=== PATIENT | female | born 1935 | race Caucasian/White ===

== ENCOUNTER 2023-03-26 10:52 | Emergency (ER) | payer MEDICARE, SELFPAY ==
--- NOTE | 2023-03-26 | ECG_ITS ---
Test Reason : TACHY Blood Pressure : / mmHG Vent. Rate : 120 BPM Atrial Rate : 120 BPM P-R Int : 174 ms QRS Dur : 074 ms QT Int : 312 ms P-R-T Axes : 043 006 038 degrees QTc Int : 440 ms Sinus tachycardia Possible Left atrial enlargement Septal infarct , age undetermined Abnormal ECG No previous ECGs available Referred By: Generic ED Physician Electronically Signed By:DARYA PECK MD
--- NOTE | ~2023-03-26 | CT_ITS ---
EXAMINATION: CT ABDOMEN AND PELVIS WITH CONTRAST CLINICAL INFORMATION: Left lower quadrant pain. COMPARISON: None available. TECHNIQUE: Multidetector volumetric images were obtained from the superior aspect of the liver through the pubic symphysis following administration 85 mL of Omnipaque 350 intravenous contrast. Sagittal and coronal reformatted images were obtained on the technologist's workstation. Oral contrast: No This CT examination was performed using dose optimization techniques as appropriate, variously including the following: *Automated exposure control *Adjustment of mA and/or kV according to patient size (this includes techniques or standardized protocols for targeted exams where dose is matched to indication/reason for exam; i.e. extremities or head) *Use of iterative reconstruction technique DLP: 306 mGy-cm FINDINGS: LUNG BASES: Linear scarring at lung bases. No acute airspace disease. LIVER, GALLBLADDER, AND BILIARY TREE: Small hepatic cyst posterior right lobe of liver. No suspicious liver lesions. No intrahepatic bile duct dilatation. The gallbladder is unremarkable with no evidence of radiopaque gallstones, gallbladder wall thickening, or obvious pericholecystic inflammatory changes. PANCREAS: Unremarkable. SPLEEN: Unremarkable. ADRENAL GLANDS: Unremarkable. KIDNEYS AND URETERS: The kidneys are normal in size, shape, and attenuation. No hydronephrosis, hydroureter, or calculi seen. No perinephric stranding. BLADDER: Unremarkable. GASTROINTESTINAL TRACT: Numerous diverticula of the sigmoid colon. There is mild bowel wall thickening of the mid sigmoid. This can be due to a mild diverticulitis. There is however no significant pericolonic edema. No abscess or free air. There is no bowel obstruction. There is a moderate to large volume of stool in the colon. The appendix is normal . The small bowel loops are unremarkable. The stomach is normal. There is no hiatal hernia. ABDOMINAL WALL: No significant hernia is appreciated. LYMPH NODES: Normal. VASCULAR: Unremarkable. PELVIC VISCERA: 5 x 6 cm low attenuating cystic lesion in the left adnexa. Patient will be having a pelvic ultrasound today as well. See separate report. OSSEOUS STRUCTURES: Multilevel degenerative spondylosis spine. CT/CT abdomen pelvis w IV con IMPRESSION: 1. Marked diverticulosis of the sigmoid colon. There is mild bowel wall thickening of the mid sigmoid. This can be due to a mild diverticulitis. There is however no significant pericolonic edema. No abscess or free air. 2. 5 x 6 cm low attenuating cystic lesion in the left adnexa. Patient will be having a pelvic ultrasound today as well. Fleischner guidelines were followed.
--- NOTE | ~2023-03-26 | US_ITS ---
EXAMINATION: US PELVIS CLINICAL INFORMATION: Left lower quadrant pain COMPARISON: None available. TECHNIQUE: Ultrasound of the pelvis is performed using both transabdominal and transvaginal transducers along with Doppler. Transvaginal imaging is performed due to inadequate visualization transabdominally. FINDINGS: Uterus: The uterus is anteverted and measures 6.6 x 2.8 x 4.1 cm. The double wall endometrial thickness is 2 mm with trace fluid. The uterus is smooth in contour and has normal myometrial echogenicity. No visible fibroid. Adnexa: Both ovaries are visualized. There is normal color flow to the adnexa. There is no ovarian torsion. There is no pelvic ascites or fluid collection. Right ovary measures 1.6 x 1.2 x 1.6 cm. Left ovary measures 7.2 x 4.6 x 6.4 cm. US/US pelvic ovarian doppler IMPRESSION: 1. No ovarian torsion. 2. Trace fluid in the endometrium. 3. Large left ovarian cyst measuring 7.2 x 4.6 x 6.4 cm concerning for a low-grade cystic neoplasm. Recommend consultation with gynecology and follow-up ultrasound in 3-6 months. Alternatively an MR pelvis with contrast could also be obtained.
--- NOTE | ~2023-03-26 | US_ITS ---
EXAMINATION: US PELVIS CLINICAL INFORMATION: Left lower quadrant pain COMPARISON: None available. TECHNIQUE: Ultrasound of the pelvis is performed using both transabdominal and transvaginal transducers along with Doppler. Transvaginal imaging is performed due to inadequate visualization transabdominally. FINDINGS: Uterus: The uterus is anteverted and measures 6.6 x 2.8 x 4.1 cm. The double wall endometrial thickness is 2 mm with trace fluid. The uterus is smooth in contour and has normal myometrial echogenicity. No visible fibroid. Adnexa: Both ovaries are visualized. There is normal color flow to the adnexa. There is no ovarian torsion. There is no pelvic ascites or fluid collection. Right ovary measures 1.6 x 1.2 x 1.6 cm. Left ovary measures 7.2 x 4.6 x 6.4 cm. US/US pelvic complete IMPRESSION: 1. No ovarian torsion. 2. Trace fluid in the endometrium. 3. Large left ovarian cyst measuring 7.2 x 4.6 x 6.4 cm concerning for a low-grade cystic neoplasm. Recommend consultation with gynecology and follow-up ultrasound in 3-6 months. Alternatively an MR pelvis with contrast could also be obtained.
[2023-03-26 11:10] VITALS: BP 132/90; BP 165/88; PULSE 122; PULSE 124; RESP 16; TEMP 37.2; O2SAT 95; O2SAT 96; BMI 23.7
[2023-03-26 11:29] LABS: Appearance Urine Clear; Color Urine Yellow; Glucose Urine UA Negative (Negative); Leukocyte Esterase Urine Negative (Negative); Nitrite Urine Negative (Negative); Urine Blood Negative (Negative); Urine Ketones Negative (Negative); Urine Protein Negative (Neg-Trace)
[2023-03-26 11:34] LABS: MANUAL DIFF FLAG NO
--- NOTE | 2023-03-26 11:40 | ED_ITS ---
HPI - Abdominal Pain General Chief Complaint: Abdominal Pain Stated Complaint: L lower abd pain per EMS Time Seen by Provider: 03/26/23 10:54 Source: patient and EMS Mode of arrival: EMS Limitations: no limitations History of Present Illness HPI narrative: 87-year-old female with past medical history significant for ovarian cyst presents to the emergency department today via EMS with complaint of left lower quadrant pain since 0300 this morning. Denies fever, chills, chest pain, shortness of breath, N/V/D, back or flank pain, dysuria, hematuria. Related Data Previous Rx's Medication Instructions Recorded amoxicillin 875 mg-potassium 1 tab PO BID 7 days #14 tabs 03/26/23 clavulanate 125 mg tablet Allergies Allergy/AdvReac Type Severity Reaction Status Date / Time No Known Allergies Allergy Unverified 05/16/20 15:22 [No Known Allergies*] Review of Systems Review of Systems Constitutional : No Weight loss, No Fever, No Chills, No Fatigue, No Malaise ENT/Mouth : No sore throat, No Rhinorrhea Eyes: No Eye Pain, No Swelling, No Redness Cardiovascular : No Chest Pain, No SOB, No Dyspnea on Exertion, No Orthopnea, No Edema, No Palpitations Respiratory : No Cough, No Sputum, No Wheezing Gastrointestinal : No Nausea, No Vomiting, No Diarrhea, No Constipation, + abdominal Pain, No Hematochezia, No Melena Genitourinary : No Dysuria, No Urinary Frequency, No Hematuria, Skin : No Skin Lesions, No rash Neuro : No Weakness, No Numbness, No Dizziness, No Headache Endocrine : No Polyuria, No Polydipsia All other systems reviewed and are negative [facility] Past Medical History Attestation statement: The following information was validated with the patient. Source: old records reviewed and nursing notes reviewed Social History Social History Alcohol intake: never Smoked in Last 30 Days: No Use of substances other than those prescribed or required for medical reasons: No Advance Directives: Yes Advance Directives Information Provided: Yes Advance Directives on File: No Physical Exam ED Vital Signs: Vital Signs - 24 hr 03/26/23 11:10 03/26/23 14:07 03/26/23 16:16 Temperature 98.9 F 99.2 F Pulse Rate 122 H 88 88 Respiratory Rate 16 17 15 Blood Pressure 165/88 H 167/79 H 166/87 H Pulse Oximetry 95 94 96 Oxygen Delivery Method Room Air Room Air Room Air 03/26/23 17:33 Temperature Pulse Rate 100 Respiratory Rate 11 L Blood Pressure 158/81 H Pulse Oximetry 95 Oxygen Delivery Method Room Air BMI result Body Mass Index 23.7 Appearance: Alert.? Oriented X3.? No acute distress.? Head: Normocephalic, atraumatic, no step-offs or deformities Eyes: Pupils equal, round and reactive to light.? ENT: Pharynx normal.? Neck: Normal inspection.? Neck supple.? CVS: Rapid rate normal rythem ? simus tach.? Pulses normal.? Respiratory: No respiratory distress.? Breath sounds normal.? Abdomen: Soft and + LLQ tenderness to palpation .? Skin: Skin warm and dry.? Normal skin color.? Normal skin turgor.? Extremities: No lower extremity edema.? No calf ttp. 5/5 strength to bilateral upper and lower extremities Back: No midline tenderness, no C-spine tenderness, full range of motion, no CVA tenderness bilaterally Neuro: Oriented X 3.? No motor deficit.? No sensory deficit. CN 2-12 intact Course Reevaluation(s) Reevaluation #1: CBC within normal limits. Chemistry unremarkable. BUN is slightly elevated at 23 however patient tolerating p.o. fluids. No signs of clinical dehydration. Troponin pending, EKG nonischemic I do not suspect ACS. Urine clean without inf ection. CT scan pending. Time: 12:02 Reevaluation #2: Ultrasound with no signs of ovarian torsion, trace fluid in the endometrium. Large left ovarian cyst measuring 7.2 x 4.6 x 6.4 cm concerning for low-grade cystic neoplasm. Recommended gynecological follow-up and ultrasound 3-6 months. An outpatient MRI should be obtained, no need for emergent MRI at this time. CT abdomen pelvis pending. Time: 14:30 Reevaluation #3: CT abdomen pelvis with marked diverticulosis of the sigmoid colon. There is mild bowel wall thickening of the mid sigmoid and this could be due to mild diverticulitis. Patient tolerating p.o.. There is no significant pericolonic edema no abscess or free air. Will discharge home with p.o. Augmentin and have her follow-up with GI. Educated patient on diagnosis and treatment plan, answered all question, patient verbalizes understanding. At this time patient will be discharged home, advised to return with new or worsening symptoms. Educated on worrisome signs and symptoms and when to return. At this time I feel comfortable discharge home. Time: 17:41 Medical Decision Making Medical Decision Making [facility] Narrative: 1144 87-year-old female, LLQ pain since 0300 am PE: slight LLQ tenderness to palpation, rapid regular rythem on exam ? sinus tach Concerns for constipation vs diverticulitis vs ovarian cyst vs UTI. Unlikely torsion, pylonephritis, kidney stoens, metabolic derangements. Unlikely atypical presentation of ACS. Plan: Labs, UA, CT abdomen pelvis, EKG Differential Diagnosis Differential Diagnoses: The differential diagnosis associated with the presentation includes Concerns for constipation vs diverticulitis vs ovarian cyst vs UTI. Unlikely torsion, pylonephritis, kidney stoens, metabolic derangements. Unlikely atypical presentation of ACS. Admission/Observation Consideration of admission/observation: Escalation of care including a dmission/observation considered unlikely Lab Data [facility] Lab Attestation statement: I reviewed the patient's lab results. 03/26/23 11:25 03/26/23 11:25 Labs: Lab Results 03/26/23 03/26/23 03/26/23 Range/Units 11:08 11:25 11:25 WBC 9.7 (4.8-10.8) X10*3/uL RBC 4.15 L (4.20-5.50) X10*6/uL Hgb 12.6 (12.0-16.0) g/dl Hct 38.4 (37.0-47.0) % MCV 92.5 (80.0-98.0) fL MCH 30.4 (27.0-33.0) pg MCHC 32.8 (31.0-35.0) g/dl RDW 12.1 (11.0-16.0) % Plt Count 245 (160-400) X10*3/uL MPV 10.4 (9.4-12.3) fL Immature Gran % (Auto) 0.3 (0.0-0.4) % Neut % (Auto) 80.2 H (45-73) % Lymph % (Auto) 12.3 L (20-40) % Isabella % (Auto) 6.0 (2-11) % Eos % (Auto) 0.8 (0-4) % Baso % (Auto) 0.4 (0-2) % Lymph # (Auto) 1.2 (1.2-4.9) X10*3/uL Isabella # (Auto) 0.6 (0.1-1.2) X10*3/uL Eos # (Auto) 0.1 (0.0-0.4) X10*3/uL Baso # (Auto) 0.0 (0.0-0.2) X10*3/uL Abs Immat Gran (auto) 0.03 (0.00-0.03) X10*3/uL Absolute Neuts (auto) 7.8 (2.0-8.3) x10*3/uL Absolute Nucleated RBC 0.000 (0.0-0.012) X10*3/uL Nucleated RBC % (auto) 0.0 (0.0-0.2) /100WBC Sodium 139 (135-145) mmol/L Potassium 3.7 (3.3-5.1) mmol/L Chloride 102 (96-108) mmol/L Carbon Dioxide 22 (22-29) mmol/L Anion Gap 19 (12-20) BUN 23 H (9-16) mg/dL Creatinine 0.72 (0.5-1.4) mg/dL Estim Creat Clear Calc 42.5 Estimated GFR > 60 Random Glucose 106 (60-115) mg/dL Calcium 9.4 (8.4-10.2) mg/dL Magnesium 2.3 (1.6-2.6) mg/dL Total Bilirubin 0.4 (0.0-1.0) mg/dL AST 19 (5-31) U/L ALT 19 (0-31) U/L Alkaline Phosphatase 91 (39-117) U/L Troponin I High Sens (<3.5-17.0) ng/L Total Protein 7.4 (6.5-8.0) g/dL Albumin 4.1 (3.5-5.0) g/dL Lipase 20 (8-78) U/L Urine Color Yellow Urine Appearance Clear Urine pH 7.0 (5.0-9.0) Ur Specific [place] 1.010 (1.005-1.025) Urine Protein Negative (Neg-Trace) mg/dL Urine Glucose (UA) Negative (Negative) mg/dL Urine Ketones Negative (Negative) mg/dL Urine Blood Negative (Negative) Urine Nitrite Negative (Negative) Ur Leukocyte Esterase Negative (Negative) 03/26/23 Range/Units 11:26 WBC (4.8-10.8) X10*3/uL RBC (4.20-5.50) X10*6/uL Hgb (12.0-16.0) g/dl Hct (37.0-47.0) % MCV (80.0-98.0) fL MCH (27.0-33.0) pg MCHC (31.0-35.0) g/dl RDW (11.0-16.0) % Plt Count (160-400) X10*3/uL MPV (9.4-12.3) fL Immature Gran % (Auto) (0.0-0.4) % Neut % (Auto) (45-73) % Lymph % (Auto) (20-40) % Isabella % (Auto) (2-11) % Eos % (Auto) (0-4) % Baso % (Auto) (0-2) % Lymph # (Auto) (1.2-4.9) X10*3/uL Isabella # (Auto) (0.1-1.2) X10*3/uL Eos # (Auto) (0.0-0.4) X10*3/uL Baso # (Auto) (0.0-0.2) X10*3/uL Abs Immat Gran (auto) (0.00-0.03) X10*3/uL Absolute Neuts (auto) (2.0-8.3) x10*3/uL Absolute Nucleated RBC (0.0-0.012) X10*3/uL Nucleated RBC % (auto) (0.0-0.2) /100WBC Sodium (135-145) mmol/L Potassium (3.3-5.1) mmol/L Chloride (96-108) mmol/L Carbon Dioxide (22-29) mmol/L Anion Gap (12-20) BUN (9-16) mg/dL Creatinine (0.5-1.4) mg/dL Estim Creat Clear Calc Estimated GFR Random Glucose (60-115) mg/dL Calcium (8.4-10.2) mg/dL Magnesium (1.6-2.6) mg/dL Total Bilirubin (0.0-1.0) mg/dL AST (5-31) U/L ALT (0-31) U/L Alkaline Phosphatase (39-117) U/L Troponin I High Sens < 2.7 (<3.5-17.0) ng/L Total Protein (6.5-8.0) g/dL Albumin (3.5-5.0) g/dL Lipase (8-78) U/L Urine Color Urine Appearance Urine pH (5.0-9.0) Ur Specific [place] (1.005-1.025) Urine Protein (Neg-Trace) mg/dL Urine Glucose (UA) (Negative) mg/dL Urine Ketones (Negative) mg/dL Urine Blood (Negative) Urine Nitrite (Negative) Ur Leukocyte Esterase (Negative) Independent Interpretation I performed an independent interpretation of an: EKG (Ventricular rate of 128, EKG showing sinus tachycardia with possible left atrial enlargement, no ST elevations or inversions concerning for acute ischemia.) and CT Scan Radiology Impression Discussion of test interpretation with radiology: I have reviewed the radiologist's reading. Independent Historian Clinical information obtained from an independent historian. History obtained from or confirmed by: EMS Prescription Management I considered prescription management with: Pain Medication Core Measures AMI core measures followed: Yes Measure exclusions: not indicated Medications Administered Discontinued Medications Generic Name Dose Route Start Last Admin Trade Name Freq PRN Reason Stop Dose Admin Iohexol 85 ml 03/26/23 12:00 03/26/23 12:02 Iohexol 350 Mg/Ml 100 Ml Infus..Btl IV 03/26/23 12:01 85 ml ONCE ONE Administration Tramadol HCl 25 mg 03/26/23 12:37 03/26/23 14:08 Tramadol Hcl 50 Mg Tablet PO 03/26/23 12:38 25 mg ONCE ONE Administration Critical Care Time Critical Care Time Critical Care Time: No Discharge Plan Discharge Clinical Impression: Acute left lower quadrant pain, Cyst, ovarian, Diverticulitis Patient Disposition: Home, Self-Care Instructions: Diverticulitis (ED), Acute Abdominal Pain (DC), Diverticulitis Diet (ED) Additional Instructions: Take your medications as prescribed. If you were prescribed antibiotics today, it is important that you take your medication to their entirety, do not skip any doses, do not finish them early. Follow-up with your primary care provider this week. You should follow up with [facility] or gynecology oncology. Please call your PCP for a referal or try speaking to oncology/hematology here. Return to the emergency department with new or worsening symptoms. Such as fevers, chills, chest pain, shortness of breath, nausea, vomiting, dizziness, headache, vision changes, lethargy In case of emergency call 911 CT/CT abdomen pelvis w IV con IMPRESSION: 1.? Marked diverticulosis of the sigmoid colon. There is mild bowel wall thickening of the mid sigmoid. This can be due to a mild diverticulitis. There is however no significant pericolonic edema. No abscess or free air. 2.? 5 x 6 cm low attenuating cystic lesion in the left adnexa. Patient will be having a pelvic ultrasound today as well. ? Fleischner guidelines were followed. US/US pelvic complete IMPRESSION: 1.? No ovarian torsion. 2.? Trace fluid in the endometrium. 3.? Large left ovarian cyst measuring 7.2 x 4.6 x 6.4 cm concerning for a low-grade cystic neoplasm. Recommend consultation with gynecology and follow-up ultrasound in 3-6 months. Alternatively an MR pelvis with contrast could also be obtained. Prescriptions: New amoxicillin-pot clavulanate 875-125 mg tablet 1 tab PO BID 7 Days Qty: 14 0RF Referrals: [facility] Oncology/Hematology [Provider Group] - 1 day Filemon Gomez PA [Primary Care Provider] - 2 days [facility] Gastroenterology Services [Provider Group] - 3 days Stand Alone Forms: Work/School Release
[2023-03-26 11:42] LABS: Basophils Percent Auto 0.4 % (0-2); Eosinophils Absolute Auto 0.1 X10*3/uL (0.0-0.4); Eosinophils Percent Auto 0.8 % (0-4); Hematocrit 38.4 % (37.0-47.0); Hemoglobin 12.6 g/dl (12.0-16.0); Imm Gran Abs Auto 0.03 X10*3/uL (0.00-0.03); Imm Gran Pct Auto 0.3 % (0.0-0.4); Lymphocytes Absolute Auto 1.2 X10*3/uL (1.2-4.9); Lymphocytes Percent Auto 12.3 % (20-40); Mean Corpuscular HGB Conc 32.8 g/dl (31.0-35.0); Mean Corpuscular Hemoglobin 30.4 pg (27.0-33.0); Mean Corpuscular Volume 92.5 fL (80.0-98.0); Mean Platelet Volume 10.4 fL (9.4-12.3); Monocytes Absolute Auto 0.6 X10*3/uL (0.1-1.2); Neutrophils Absolute Auto 7.8 x10*3/uL (2.0-8.3); Neutrophils Percent Auto 80.2 % (45-73); Platelet Count 245 X10*3/uL (160-400); Red Blood Count 4.15 X10*6/uL (4.20-5.50); Red Cell Distribution Width 12.1 % (11.0-16.0); White Blood Count 9.7 X10*3/uL (4.8-10.8)
[2023-03-26 11:55] LABS: Alanine Aminotransferase 19 U/L (0-31); Albumin Level 4.1 g/dL (3.5-5.0); Alkaline Phosphatase 91 U/L (39-117); Anion Gap 19 (12-20); Aspartate Amino Transferase 19 U/L (5-31); Bilirubin Total 0.4 mg/dL (0.0-1.0); Blood Urea Nitrogen 23 mg/dL (9-16); Calcium 9.4 mg/dL (8.4-10.2); Carbon Dioxide 22 mmol/L (22-29); Chloride 102 mmol/L (96-108); Creatinine Clr Calc Pharmacy 42.5; Estimated Glomerular Filt Rate > 60; Glucose Random 106 mg/dL (60-115); Lipase 20 U/L (8-78); Magnesium 2.3 mg/dL (1.6-2.6); Potassium 3.7 mmol/L (3.3-5.1); Sodium 139 mmol/L (135-145); Total Protein 7.4 g/dL (6.5-8.0)
[2023-03-26] MEDS: iohexoL 350 MG/ML 100 ML INFUS..BTL 85 ML IV (12:02)
[2023-03-26 12:05] LABS: Troponin-I High Sensitivity < 2.7 ng/L (<3.5-17.0)
[2023-03-26 14:07] VITALS: BP 167/79; PULSE 88; RESP 17; O2SAT 94
[2023-03-26] MEDS: traMADoL HCL 50 MG TABLET 25 MG PO (14:08)
[2023-03-26 16:16] VITALS: BP 166/87; PULSE 88; RESP 15; TEMP 37.3; O2SAT 96
[2023-03-26 17:33] VITALS: BP 158/81; PULSE 100; RESP 11; O2SAT 95
--- NOTE | 2023-04-05 09:07 | HE.ONCSEC ---
Mailed no show ltr to pt
== END 2023-03-26 18:22 | disposition home or self-care (01) ==
PROVIDERS: Physician Assistant; Emergency Provider Emergency Medicine Emergency Medical Services; PCP Physician Assistant Medical
DX: N83.202 Unspecified ovarian cyst, left side (principal); K57.30 Diverticulosis of large intestine without perforation or abscess without bleeding; R10.2 Pelvic and perineal pain; R00.0 Tachycardia, unspecified; Z79.899 Other long term (current) drug therapy
CPT/HCPCS: 36415; 74177; 76856; 80053; 81003; 83690; 83735; 84484; 85025; 93005; 93975; 99284; 99285; Q9967

== ENCOUNTER → 2023-03-26 11:17 | Outpatient (BNV) | payer MEDICARE, SELFPAY | PROVIDERS: PCP Physician Assistant Medical; Visit Provider Internal Medicine Cardiovascular Disease | DX: R00.0 Tachycardia, unspecified (principal) | CPT/HCPCS: 93010 ==

== ENCOUNTER 2023-08-25 13:46 | Emergency (ER) | payer MEDICARE, SELFPAY ==
--- NOTE | 2023-08-25 13:56 | ED_ITS ---
HPI - Abdominal Pain General Chief Complaint: Abdominal Pain Stated Complaint: Abd pain Related Data Previous Rx's Medication Instructions Recorded amoxicillin 875 mg-potassium 1 tab PO BID 7 days #14 tabs 03/26/23 clavulanate 125 mg tablet Allergies Allergy/AdvReac Type Severity Reaction Status Date / Time omeprazole [From Prilosec] AdvReac Gastrointestinal Verified 08/25/23 13:57 Upset PMFSH Past Medical History Medical History Diverticulitis Cyst, ovarian Social History Social History Alcohol intake: never Advance Directives: No Advance Directives Information Provided: Yes Physical Exam ED Vital Signs: BMI result Body Mass Index 23.6 Course Course Course Narrative: RME: 87 yo F w/no sig PMHx presenting to the ED c/o LLQ abdominal pain x couple days, worsening yesterday. Admits to constipation, last BM small and this morning. denies N/V, fever. [facility] and sent to the ED. Tachycardic Labs, UA ordered Full HPI, ROS and PE to be performed by primary ED provider. Medical Decision Making Lab Data 08/25/23 14:15 08/25/23 14:15 Labs: Lab Results 08/25/23 Range/Units 14:15 WBC 13.4 H (4.8-10.8) X10*3/uL RBC 3.85 L (4.20-5.50) X10*6/uL Hgb 12.0 (12.0-16.0) g/dl Hct 36.4 L (37.0-47.0) % MCV 94.5 (80.0-98.0) fL MCH 31.2 (27.0-33.0) pg MCHC 33.0 (31.0-35.0) g/dl RDW 13.2 (11.0-16.0) % Plt Count 242 (160-400) X10*3/uL MPV 9.5 (9.4-12.3) fL Immature Gran % (Auto) 0.5 H (0.0-0.4) % Neut % (Auto) 84.9 H (45-73) % Lymph % (Auto) 8.1 L (20-40) % Door % (Auto) 5.1 (2-11) % Eos % (Auto) 1.0 (0-4) % Baso % (Auto) 0.4 (0-2) % Lymph # (Auto) 1.1 L (1.2-4.9) X10*3/uL Door # (Auto) 0.7 (0.1-1.2) X10*3/uL Eos # (Auto) 0.1 (0.0-0.4) X10*3/uL Baso # (Auto) 0.1 (0.0-0.2) X10*3/uL Abs Immat Gran (auto) 0.07 H (0.00-0.03) X10*3/uL Absolute Neuts (auto) 11.4 H (2.0-8.3) x10*3/uL Absolute Nucleated RBC 0.000 (0.0-0.012) X10*3/uL Nucleated RBC % (auto) 0.0 (0.0-0.2) /100WBC Sodium 140 (135-145) mmol/L Potassium 4.7 D (3.3-5.1) mmol/L Chloride 103 (96-108) mmol/L Carbon Dioxide 30 H (22-29) mmol/L Anion Gap 12 (12-20) BUN 20 H (9-16) mg/dL Creatinine 0.74 (0.5-1.4) mg/dL Estim Creat Clear Calc 41.3 Estimated GFR > 60 Random Glucose 109 (60-115) mg/dL Calcium 9.4 (8.4-10.2) mg/dL Magnesium 2.2 (1.6-2.6) mg/dL Total Bilirubin 0.3 (0.0-1.0) mg/dL Direct Bilirubin 0.1 (0.0-0.5) mg/dL AST 19 (5-31) U/L ALT 16 (0-31) U/L Alkaline Phosphatase 73 (39-117) U/L Total Protein 7.0 (6.5-8.0) g/dL Albumin 4.0 (3.5-5.0) g/dL Lipase 17 (8-78) U/L Discharge Plan Discharge Clinical Impression: Abdominal pain Patient Disposition: Left W/O Completing Treatment Prescriptions: No Action amoxicillin-pot clavulanate 875-125 mg tablet 1 tab PO BID 7 Days Qty: 14 0RF Discharge Date/Time: 08/25/23 17:15
[2023-08-25 13:58] VITALS: BP 133/67; PULSE 116; RESP 18; TEMP 36.9; O2SAT 95; BMI 23.6
[2023-08-25 14:20] LABS: MANUAL DIFF FLAG NO
[2023-08-25 14:21] LABS: Basophils Absolute Auto 0.1 X10*3/uL (0.0-0.2); Basophils Percent Auto 0.4 % (0-2); Eosinophils Absolute Auto 0.1 X10*3/uL (0.0-0.4); Hematocrit 36.4 % (37.0-47.0); Imm Gran Abs Auto 0.07 X10*3/uL (0.00-0.03); Imm Gran Pct Auto 0.5 % (0.0-0.4); Lymphocytes Absolute Auto 1.1 X10*3/uL (1.2-4.9); Lymphocytes Percent Auto 8.1 % (20-40); Mean Corpuscular Hemoglobin 31.2 pg (27.0-33.0); Mean Corpuscular Volume 94.5 fL (80.0-98.0); Mean Platelet Volume 9.5 fL (9.4-12.3); Monocytes Absolute Auto 0.7 X10*3/uL (0.1-1.2); Monocytes Percent Auto 5.1 % (2-11); Neutrophils Absolute Auto 11.4 x10*3/uL (2.0-8.3); Neutrophils Percent Auto 84.9 % (45-73); Platelet Count 242 X10*3/uL (160-400); Red Blood Count 3.85 X10*6/uL (4.20-5.50); Red Cell Distribution Width 13.2 % (11.0-16.0); White Blood Count 13.4 X10*3/uL (4.8-10.8)
[2023-08-25 14:41] LABS: Alanine Aminotransferase 16 U/L (0-31); Alkaline Phosphatase 73 U/L (39-117); Anion Gap 12 (12-20); Aspartate Amino Transferase 19 U/L (5-31); Bilirubin Direct 0.1 mg/dL (0.0-0.5); Bilirubin Total 0.3 mg/dL (0.0-1.0); Blood Urea Nitrogen 20 mg/dL (9-16); Calcium 9.4 mg/dL (8.4-10.2); Carbon Dioxide 30 mmol/L (22-29); Chloride 103 mmol/L (96-108); Creatinine Clr Calc Pharmacy 41.3; Estimated Glomerular Filt Rate > 60; Glucose Random 109 mg/dL (60-115); Lipase 17 U/L (8-78); Magnesium 2.2 mg/dL (1.6-2.6); Potassium 4.7 mmol/L (3.3-5.1); Sodium 140 mmol/L (135-145)
== END 2023-08-25 17:15 | disposition left against medical advice (07) ==
LOC: HO.ED 17:08
PROVIDERS: Physician Assistant; Emergency Provider Emergency Medicine; PCP Physician Assistant Medical
DX: R10.9 Unspecified abdominal pain (principal)
CPT/HCPCS: 36415; 80048; 80076; 83690; 83735; 85025; 99281; 99283

== ENCOUNTER 2023-08-26 11:23 | Emergency (ER) | payer MEDICARE, SELFPAY ==
--- NOTE | ~2023-08-26 | CT_ITS ---
EXAMINATION: CT ABDOMEN AND PELVIS WITH CONTRAST CLINICAL INFORMATION: Abdominal pain. History of constipation. Ovarian mass. COMPARISON: None available. TECHNIQUE: Multidetector volumetric images were obtained from the superior aspect of the liver through the pubic symphysis following administration 85 mL of Omnipaque 350 intravenous contrast. Sagittal and coronal reformatted images were obtained on the technologist's workstation. Oral contrast: No This CT examination was performed using dose optimization techniques as appropriate, variously including the following: *Automated exposure control *Adjustment of mA and/or kV according to patient size (this includes techniques or standardized protocols for targeted exams where dose is matched to indication/reason for exam; i.e. extremities or head) *Use of iterative reconstruction technique DLP: 333 mGy-cm FINDINGS: LUNG BASES: Platelike atelectasis in lung bases. The heart size is normal. There is a small hiatal hernia. LIVER, GALLBLADDER, AND BILIARY TREE: The liver is normal in size, shape, and attenuation. There is a 9 mm hypodensity posterior segment right hepatic lobe. No intrahepatic ductal dilatation seen. The gallbladder is unremarkable with no evidence of radiopaque gallstones, gallbladder wall thickening, or obvious pericholecystic inflammatory changes. PANCREAS: Unremarkable. SPLEEN: Unremarkable. ADRENAL GLANDS: Unremarkable. KIDNEYS AND URETERS: The kidneys are normal in size, shape, and attenuation. No hydronephrosis, hydroureter, or calculi seen. No perinephric stranding. There is a 1.3 cm exophytic cyst midpole right kidney. There is a 4 mm cyst lower pole both kidneys. BLADDER: The bladder is mildly distended. GASTROINTESTINAL TRACT: There is scattered stool, diverticula and gas seen throughout the colon. Oral contrast opacifies most of the colon and appears unremarkable. There is nonspecific mild mural thickening involving the redundant sigmoid colon but no pericolic fat stranding. Appendix is not seen. The stomach is nondistended. ABDOMINAL WALL: No significant hernia is appreciated. LYMPH NODES: Normal. VASCULAR: Unremarkable. PELVIC VISCERA: Superior to the bladder is a 5.8 x 5.1 x 4.7 cm simple cyst with peripheral tissue around it likely arising of the ovary probably left side. It measures 11 Hounsfield units The right ovary is unremarkable. OSSEOUS STRUCTURES: There is mild degenerative disc changes with vacuum disc phenomenon and spondylosis L4-L5 and L5-S1 disc level. No aggressive lytic or sclerotic process seen. CT/CT abdomen pelvis w IV con IMPRESSION: 1. Large simple cyst superior to the bladder likely arising from the left ovary. 2. Scattered colonic diverticulosis without diverticulitis. Mild constipation. 3. Bilateral renal cysts. 4. Small hiatal hernia. Findings of ovarian cyst are overwhelmingly likely to be normal and no followup imaging recommended. Fleischner guidelines were followed.
--- NOTE | ~2023-08-26 | US_ITS ---
EXAMINATION: US PELVIS CLINICAL INFORMATION: Left lower quadrant pain for 2 days Postmenopausal COMPARISON: CT scan abdomen and pelvis 03/26/2023, pelvic ultrasound 03/26/2023 TECHNIQUE: Ultrasound of the pelvis is performed using both transabdominal and transvaginal transducers along with Doppler. Transvaginal imaging is performed due to inadequate visualization transabdominally. FINDINGS: Uterus: The uterus is anteverted and measures 6.6 x 2.5 x 4.4 cm. Coarse calcifications are seen within the body the uterus posteriorly. The endometrial thickness is 0.2 mm. There is a moderate amount of fluid within the endometrial cavity. Adnexa: Both ovaries are visualized. There is normal color flow to the adnexa. There is no ovarian torsion. The right ovary is normal in appearance and measures 1.8 x 1.1 x 1.0 cm. Volume 1.0 mL. The left ovary measures 6.6 x 4.4 x 5.9 cm. Volume 89.7 mL. There is a 6.0 x 4.6 x 4.9 cm cyst in the left ovary, previously measured 6.6 x 3.7 x 5.8 cm US/US pelvic and transvaginal IMPRESSION: 1. No ovarian torsion. 2. Moderate amount of fluid within the endometrial cavity. 3. Large left ovarian cyst measuring 6.0 x 4.6 x 4.9 cm. Left ovarian cyst was seen on pelvic ultrasound 03/26/2023. No significant change in volume. This raises concern regarding a low-grade cystic neoplasm. Recommend consultation with gynecology and follow-up ultrasound in 3-6 months or MRI pelvis with contrast could also be obtained.
--- NOTE | 2023-08-26 11:56 | ED_ITS ---
HPI - Abdominal Pain General Chief Complaint: Abdominal Pain Stated Complaint: abd pain Time Seen by Provider: 08/26/23 15:59 Source: patient Mode of arrival: ambulatory Limitations: no limitations History of Present Illness HPI narrative: Patient is an 87 year old assigned female at with a history of diverticulitis and an ovarian mass presenting to the emergency department today with abdominal pain and possible constipation. Patient states that she has been having abdominal pain for the last few days and is concerned that she is constipated. Patient states that she was told about the cyst on her ovary in February but didn't remember being told to follow up on it. Patient denies any dizziness, lightheadedness, nausea, vomiting, fever, chills, blurry vision, double vision, loss of vision, chest pain, difficulty breathing, shortness of breath, back pain, night sweats, pain with urination, increased urinary frequency, increased urinary urgency, blood in her urine or stool, syncope or a near syncopal episode, recent trauma or falls, bowel incontinence, bladder incontinence, bladder retention, or any other complaints at this time. MD elicited complaint: abdominal pain Pertinent past history: constipation Onset (ago): day(s) Pain Consistency: constant Severity: mild Radiation: none Exacerbating factors: nothing Relieving factors: nothing Associated symptoms: denies other symptoms Related Data Previous Rx's Medication Instructions Recorded amoxicillin 875 mg-potassium 1 tab PO BID 7 days #14 tabs 03/26/23 clavulanate 125 mg tablet Allergies Allergy/AdvReac Type Severity Reaction Status Date / Time omeprazole [From Prilosec] AdvReac Gastrointestinal Verified 08/25/23 13:57 Upset Review of Systems Constitutional: Reports no additional constitutional complaints, Denies chills, Denies fever(s) and Denies night sweats Eyes: Reports no additional eye complaints, Denies blurry vision, Denies change in vision, Denies diplopia, Denies eye discharge, Denies loss of vision and Denies eye pain Denies dizziness Cardiovascular: Reports no additional cardiovascular complaints, Denies chest pain, Denies lightheadedness, Denies Loss of Consciousness and Denies dyspnea Respiratory: Reports no additional respiratory complaints and Denies dyspnea Gastrointestinal: Reports no additional gastrointestinal complaints, Reports abdominal pain, Denies melena, Denies hematochezia, Denies change in bowel habits and Denies change in stool character Genitourinary: Denies hematuria, Denies urinary frequency, Denies dysuria, Denies urinary incontinence, Denies urinary hesitancy and Denies urinary urgency Musculoskeletal: Reports no additional musculoskeletal complaints, Denies numbness and Denies tingling Denies dizziness, Denies loss of vision, Denies numbness and Denies tingling Psychiatric: Reports no additional psychiatric complaints Endocrine: Reports no additional endocrine complaints Hematologic/Lymphatic: Reports no additional hematologic/lymphatic complaints Allergic/Immunologic: Reports no additional allergic/immunologic complaints [facility] Past Medical History Attestation statement: The following information was validated with the patient. Source: old records reviewed and nursing notes reviewed Medical History Diverticulitis Cyst, ovarian Social History Social History Alcohol intake: never Smoked in Last 30 Days: No Use of substances other than those prescribed or required for medical reasons: No Advance Directives: No Advance Directives Information Provided: Yes Physical Exam ED Vital Signs: Vital Signs - 24 hr 08/26/23 11:58 08/26/23 19:48 Temperature 98.8 F 99.4 F Pulse Rate 110 H 99 Respiratory Rate 16 17 Blood Pressure 156/75 H 156/84 H Pulse Oximetry 96 97 Oxygen Delivery Method Room Air Room Air BMI result Body Mass Index 23.2 Const General: cooperative, no acute distress, alert and awake Nutritional Appearance: well nourished Orientation/consciousness: patient oriented x3 Limitations: no limitations [facility] Head: Yes normal to inspection and Yes atraumatic Ears: hearing grossly normal bilaterally and external ears normal General nose exam: Normal external nose present, no nasal discharge noted and no epistaxis Face and sinus: Yes normal facial exam, No abrasion and No laceration Mouth: Normal oral and palatal mucosa present, no drooling and no muffled voice Eyes General: appearance normal, both eyes and all related structures Periorbital: periorbital findings normal Eyelids: Yes eyelids normal Conjunctivae: conjunctivae normal Pupils: Equal, round and reactive pupils present EOM: EOMs intact bilaterally Neck Neck: Yes normal visual inspection, Yes full ROM and Yes no lymphadenopathy Chest Chest palpation & inspection: normal inspection of the chest Resp Effort & Inspection: normal respiratory effort and able to speak in complete sentences GI Inspection: Yes normal to inspection Palpation (GI): Soft to palpation, not firm, nontender and no guarding Neuro General: patient oriented x3 and moves all extremities Cranial nerves: Yes Equal, round and reactive pupils present Cognition (Neuro): normal cognition Motor exam (neuro): 5/5 motor strength present throughout Sensory Exam: Normal double simultaneous stimulation for sensation Coordination: [id number] test normal Extrem General: Yes normal to inspection, Yes full ROM and Yes capillary refill normal Psych Appearance: grossly normal Mental Status: mental status grossly normal Affect: normal affect Attitude: cooperative Thought process: Normal thought process present Thought content: Normal thought content present Insight: Good insight present (Psych) Course Course Course Narrative: RME:?87 yo female here with LLQ pain x2 days. diagnosed with diverticulitis in 02/2023 along w/ left adnexal cyst. +constipation. denies nausea/vomiting/diarrhea. Triaged yesterday, left without completing treatment. Labs done yesterday. nurse at home concerned about ovarian cyst rupture. plan: labs, UA, +/- imaging per primary provider Full HPI, ROS and PE to be performed by the primary ED provider. Medical Decision Making Medical Decision Making [facility] Narrative: Patient is an 87 year old assigned female at with a history of an ovarian mass presenting to the emergency department today with left sided abdominal pain. Patient's physical exam was unremarkable. Patient's blood work showed a mild elevation of her WBC count of 15.1, this is likely a stress reaction and not secondary to an infection. The rest of the patient's labs were unremarkable. Patient's urine showed no acute process. Patient's EKG was unremarkable. Patient's pelvic/transvaginal US showed a left ovarian mass. Patient's CT abd/pelvis also showed the left ovarian mass. I explained my physical exam findings as well as all test results to the patient, the patient's , and the patient's daughter. I answered all questions asked by the patient, the patient's , and the patient's daughter. I stressed the importance of the patient taking her medication as prescribed. I stressed the importance of the patient following up with her primary care provider and an OBGYN. I stressed the importance of the patient returning to the emergency department immediately if her symptoms were to worsen or if she were to develop any dizziness, shortness of breath, difficulty breathing, chest pain, blurry vision, loss of vision, nausea, vomiting, abdominal pain, fever, chills, back pain, or any other complaints. Patient, the patient's , and the patient's daughter verbalized agreement and understanding with this treatment plan and discharge. Differential Diagnosis Differential Diagnoses: The differential diagnosis associated with the presentation includes Ovarian mass UTI Diverticulitis Abdominal pain Constipation Admission/Observation Consideration of admission/observation: Escalation of care including admission/observation considered Patient would have been admitted to the hospital had her work up had any findings where hospital admission was appropriate and her clinical presentation warranted hospital admission. Lab Data [facility] Lab Attestation statement: I reviewed the patient's lab results. My interpretation of these results are in the [facility] Rationale portion of this note. 08/26/23 12:21 08/26/23 12:21 Labs: Lab Results 08/26/23 08/26/23 08/26/23 Range/Units 12:21 16:09 20:17 WBC 15.1 H (4.8-10.8) X10*3/uL RBC 3.82 L (4.20-5.50) X10*6/uL Hgb 11.9 L (12.0-16.0) g/dl Hct 36.3 L (37.0-47.0) % MCV 95.0 (80.0-98.0) fL MCH 31.2 (27.0-33.0) pg MCHC 32.8 (31.0-35.0) g/dl RDW 13.2 (11.0-16.0) % Plt Count 241 (160-400) X10*3/uL MPV 9.5 (9.4-12.3) fL Immature Gran % (Auto) 0.5 H (0.0-0.4) % Neut % (Auto) 84.4 H (45-73) % Lymph % (Auto) 7.6 L (20-40) % [place] % (Auto) 6.0 (2-11) % Eos % (Auto) 1.1 (0-4) % Baso % (Auto) 0.4 (0-2) % Lymph # (Auto) 1.2 (1.2-4.9) X10*3/uL [place]alier # (Auto) 0.9 (0.1-1.2) X10*3/uL Eos # (Auto) 0.2 (0.0-0.4) X10*3/uL Baso # (Auto) 0.1 (0.0-0.2) X10*3/uL Abs Immat Gran (auto) 0.08 H (0.00-0.03) X10*3/uL Absolute Neuts (auto) 12.7 H (2.0-8.3) x10*3/uL Absolute Nucleated RBC 0.000 (0.0-0.012) X10*3/uL Nucleated RBC % (auto) 0.0 (0.0-0.2) /100WBC Sodium 140 (135-145) mmol/L Potassium 3.7 D (3.3-5.1) mmol/L Chloride 101 (96-108) mmol/L Carbon Dioxide 31 H (22-29) mmol/L Anion Gap 12 (12-20) BUN 14 (9-16) mg/dL Creatinine 0.68 (0.5-1.4) mg/dL Estim Creat Clear Calc 44.6 Estimated GFR > 60 Random Glucose 106 (60-115) mg/dL Calcium 9.2 (8.4-10.2) mg/dL Magnesium 2.1 (1.6-2.6) mg/dL Urine Color Yellow Urine Appearance Clear Urine pH 7.5 (5.0-9.0) Ur Specific [place] >= 1.030 H (1.005-1.025) Urine Protein Negative (Neg-Trace) mg/dL Urine Glucose (UA) Negative (Negative) mg/dL Urine Ketones Negative (Negative) mg/dL Urine Blood Trace H (Negative) Urine Nitrite Negative (Negative) Ur Leukocyte Esterase Trace H (Negative) Urine RBC 0-2 (0-2) /HPF Urine WBC 0-5 (0-5) /HPF Ur Squamous Epith Cells 0-2 (0-2) /HPF Urine Bacteria None Seen (None Seen) Hyaline Casts 0-2 (0-2) /LPF Influenza Type A (PCR) NEGATIVE (Negative) Influenza Type B (PCR) NEGATIVE (Negative) RSV RNA Qual (PCR) NEGATIVE (Negative) SARS-CoV-2 RNA (RT-PCR) NEGATIVE (Negative) Independent Interpretation I performed an independent interpretation of an: Ultrasound and CT Scan Interpretation: My interpretation is in agreement with the radiologist's impression of these imaging studies. - EXAMINATION: US PELVIS CLINICAL INFORMATION: Left lower quadrant pain for 2 days Postmenopausal COMPARISON: CT scan abdomen and pelvis 03/26/2023, pelvic ultrasound 03/26/2023 TECHNIQUE: Ultrasound of the pelvis is performed using both transabdominal and transvaginal transducers along with Doppler. Transvaginal imaging is performed due to inadequate visualization transabdominally. FINDINGS: Uterus: The uterus is anteverted and measures 6.6 x 2.5 x 4.4 cm. Coarse calcifications are seen within the body the uterus posteriorly. The endometrial thickness is 0.2 mm. There is a moderate amount of fluid within the endometrial cavity. Adnexa: Both ovaries are visualized. There is normal color flow to the adnexa. There is no ovarian torsion. The right ovary is normal in appearance and measures 1.8 x 1.1 x 1.0 cm. Volume 1.0 mL. The left ovary measures 6.6 x 4.4 x 5.9 cm. Volume 89.7 mL. There is a 6.0 x 4.6 x 4.9 cm cyst in the left ovary, previously measured 6.6 x 3.7 x 5.8 cm US/US pelvic and transvaginal IMPRESSION: 1. No ovarian torsion. 2. Moderate amount of fluid within the endometrial cavity. 3. Large left ovarian cyst measuring 6.0 x 4.6 x 4.9 cm. Left ovarian cyst was seen on pelvic ultrasound 03/26/2023. No significant change in volume. This raises concern regarding a low-grade cystic neoplasm. Recommend consultation with gynecology and follow-up ultrasound in 3-6 months or MRI pelvis with contrast could also be obtained. Dictated By: Tatum Dinh MD Signed By: Electronically signed by Tatum Dinh MD 08/26/23 1552 - EXAMINATION: CT ABDOMEN AND PELVIS WITH CONTRAST CLINICAL INFORMATION: Abdominal pain. History of constipation. Ovarian mass. COMPARISON: None available. TECHNIQUE: Multidetector volumetric images were obtained from the superior aspect of the liver through the pubic symphysis following administration 85 mL of Omnipaque 350 intravenous contrast. Sagittal and coronal reformatted images were obtained on the technologist's workstation. Oral contrast: No This CT examination was performed using dose optimization techniques as appropriate, variously including the following: *Automated exposure control *Adjustment of mA and/or kV according to patient size (this includes techniques or standardized protocols for targeted exams where dose is matched to indication/reason for exam; i.e. extremities or head) *Use of iterative reconstruction technique DLP: 333 mGy-cm FINDINGS: LUNG BASES: Platelike atelectasis in lung bases. The heart size is normal. There is a small hiatal hernia. LIVER, GALLBLADDER, AND BILIARY TREE: The liver is normal in size, shape, and attenuation. There is a 9 mm hypodensity posterior segment right hepatic lobe. No intrahepatic ductal dilatation seen. The gallbladder is unremarkable with no evidence of radiopaque gallstones, gallbladder wall thickening, or obvious pericholecystic inflammatory changes. PANCREAS: Unremarkable. SPLEEN: Unremarkable. ADRENAL GLANDS: Unremarkable. KIDNEYS AND URETERS: The kidneys are normal in size, shape, and attenuation. No hydronephrosis, hydroureter, or calculi seen. No perinephric stranding. There is a 1.3 cm exophytic cyst midpole right kidney. There is a 4 mm cyst lower pole both kidneys. BLADDER: The bladder is mildly distended. GASTROINTESTINAL TRACT: There is scattered stool, diverticula and gas seen throughout the colon. Oral contrast opacifies most of the colon and appears unremarkable. There is nonspecific mild mural thickening involving the redundant sigmoid colon but no pericolic fat stranding. Appendix is not seen. The stomach is nondistended. ABDOMINAL WALL: No significant hernia is appreciated. LYMPH NODES: Normal. VASCULAR: Unremarkable. PELVIC VISCERA: Superior to the bladder is a 5.8 x 5.1 x 4.7 cm simple cyst with peripheral tissue around it likely arising of the ovary probably left side. It measures 11 Hounsfield units The right ovary is unremarkable. OSSEOUS STRUCTURES: There is mild degenerative disc changes with vacuum disc phenomenon and spondylosis L4-L5 and L5-S1 disc level. No aggressive lytic or sclerotic process seen. CT/CT abdomen pelvis w IV con IMPRESSION: 1. Large simple cyst superior to the bladder likely arising from the left ovary. 2. Scattered colonic diverticulosis without diverticulitis. Mild constipation. 3. Bilateral renal cysts. 4. Small hiatal hernia. Findings of ovarian cyst are overwhelmingly likely to be normal and no followup imaging recommended. Fleischner guidelines were followed. Dictated By: Santiago Zendejas MD Signed By: Electronically signed by Santiago Zendejas MD 08/26/231924 Radiology Impression Discussion of test interpretation with radiology: I have reviewed the radiologist's reading. Independent Historian Clinical information obtained from an independent historian. History obtained from or confirmed by: Spouse (patient's provided additional history and confirmed the history provided by the patient) and Other (patient's daughter provided additional history and confirmed the history provided by the patient) Medications Administered Discontinued Medications Generic Name Dose Route Start Last Admin Trade Name Freq PRN Reason Stop Dose Admin Diatrizoate Meglum/Diatrizoate Sod 30 ml 08/26/23 18:50 08/26/23 18:50 Diatrizoate Meglumine, Sodium 30 Ml Solution PO 08/26/23 18:51 30 ml ONCE ONE Administration Iohexol 85 ml 08/26/23 18:49 08/26/23 18:49 Iohexol 350 Mg/Ml 100 Ml Infus..Btl IV 08/26/23 18:50 85 ml ONCE ONE Administration Discharge Plan Discharge Clinical Impression: Abdominal pain, Mass of ovary Patient Disposition: Home, Self-Care Instructions: Abdominal Pain (ED) Additional Instructions: Your scan showed a left ovarian mass that needs further work up. I believe that this is in part, why you are having this left lower abdominal pain. Follow up with your primary care provider and an OBGYN. Return to the emergency department immediately if your symptoms worsen or if you develop any dizziness, shortness of breath, difficulty breathing, chest pain, blurry vision, loss of vision, nausea, vomiting, abdominal pain, fever, chills, back pain, or any other complaints. Prescriptions: No Action amoxicillin-pot clavulanate 875-125 mg tablet 1 tab PO BID 7 Days Qty: 14 0RF Referrals: Filemon Gomez PA [Primary Care Provider] - Justin Moreno MD [Physician] - (Call to establish and follow up with an OBGYN to further evaluate this ovarian mass. ) Interventions: ED Discharge Assessment Last Done: 08/26/23 21:29 Discharge Date/Time: 08/26/23 21:30 Print Language: Uzbek
[2023-08-26 11:58] VITALS: BP 156/75; PULSE 110; RESP 16; TEMP 37.1; O2SAT 96; BMI 23.2
[2023-08-26 12:28] LABS: MANUAL DIFF FLAG NO
[2023-08-26 12:29] LABS: Basophils Absolute Auto 0.1 X10*3/uL (0.0-0.2); Basophils Percent Auto 0.4 % (0-2); Eosinophils Absolute Auto 0.2 X10*3/uL (0.0-0.4); Eosinophils Percent Auto 1.1 % (0-4); Hematocrit 36.3 % (37.0-47.0); Hemoglobin 11.9 g/dl (12.0-16.0); Imm Gran Abs Auto 0.08 X10*3/uL (0.00-0.03); Imm Gran Pct Auto 0.5 % (0.0-0.4); Lymphocytes Absolute Auto 1.2 X10*3/uL (1.2-4.9); Lymphocytes Percent Auto 7.6 % (20-40); Mean Corpuscular HGB Conc 32.8 g/dl (31.0-35.0); Mean Corpuscular Hemoglobin 31.2 pg (27.0-33.0); Mean Platelet Volume 9.5 fL (9.4-12.3); Monocytes Absolute Auto 0.9 X10*3/uL (0.1-1.2); Neutrophils Absolute Auto 12.7 x10*3/uL (2.0-8.3); Neutrophils Percent Auto 84.4 % (45-73); Platelet Count 241 X10*3/uL (160-400); Red Blood Count 3.82 X10*6/uL (4.20-5.50); Red Cell Distribution Width 13.2 % (11.0-16.0); White Blood Count 15.1 X10*3/uL (4.8-10.8)
[2023-08-26 12:43] LABS: Anion Gap 12 (12-20); Blood Urea Nitrogen 14 mg/dL (9-16); Calcium 9.2 mg/dL (8.4-10.2); Carbon Dioxide 31 mmol/L (22-29); Chloride 101 mmol/L (96-108); Creatinine Clr Calc Pharmacy 44.6; Estimated Glomerular Filt Rate > 60; Glucose Random 106 mg/dL (60-115); Magnesium 2.1 mg/dL (1.6-2.6); Potassium 3.7 mmol/L (3.3-5.1); Sodium 140 mmol/L (135-145)
[2023-08-26 17:11] LABS: Influenza A PCR NEGATIVE (Negative); Influenza B PCR NEGATIVE (Negative); Resp Syncy Virus RNA Qual PCR NEGATIVE (Negative); SARS COV2 PCR INHOUSE NEGATIVE (Negative)
[2023-08-26] MEDS: iohexoL 350 MG/ML 100 ML INFUS..BTL 85 ML IV (18:49)
[2023-08-26] MEDS: Diatrizoate Meglumine, Sodium 30 ML SOLUTION PO (18:50)
[2023-08-26 19:48] VITALS: BP 156/84; PULSE 99; RESP 17; TEMP 37.4; O2SAT 97
--- NOTE | 2023-08-26 20:15 | MHC.EDTECH ---
This tech assumed care of patient,ambulated to bathroom with a steady gait,Urine sample collected and sent to lab. Family at bedside and call fang within reach
[2023-08-26 20:34] LABS: Appearance Urine Clear; Color Urine Yellow; Glucose Urine UA Negative (Negative); Leukocyte Esterase Urine Trace (Negative); Nitrite Urine Negative (Negative); PH 7.5 (5.0-9.0); Specific Gravity - Urine >= 1.030 (1.005-1.025); UMIC TRIGGER UACC YES; Urine Blood Trace (Negative); Urine Ketones Negative (Negative); Urine Protein Negative (Neg-Trace)
[2023-08-26 20:40] LABS: Bacteria Urine None Seen (None Seen); Hyaline Casts Urine 0-2 /LPF (0-2); RBC Urine 0-2 /HPF (0-2); Squamous Epithelial Cell Urine 0-2 /HPF (0-2); WBC Urine 0-5 /HPF (0-5)
--- NOTE | 2023-08-26 21:28 | PC.NURSE ---
pt and pt family given discharge instructions, no questions at this time. pt ambulated with steady gait.
== END 2023-08-26 21:30 | disposition home or self-care (01) ==
PROVIDERS: Physician Assistant Medical; Emergency Provider Emergency Medicine; PCP Physician Assistant Medical
DX: N83.9 Noninflammatory disorder of ovary, fallopian tube and broad ligament, unspecified (principal); R10.2 Pelvic and perineal pain; Z20.822 Contact with and (suspected) exposure to COVID-19; Z20.828 Contact with and (suspected) exposure to other viral communicable diseases; Z79.899 Other long term (current) drug therapy
CPT/HCPCS: 0241U; 36415; 74177; 76830; 76856; 80048; 81001; 83735; 85025; 99284; Q9967

== ENCOUNTER 2025-03-30 13:31 | Emergency (ER) | payer MEDICARE, SELFPAY ==
--- NOTE | ~2025-03-30 | CT_ITS ---
EXAMINATION: CT ABDOMEN AND PELVIS WITH CONTRAST CLINICAL INFORMATION: Left lower quadrant tenderness, COMPARISON: August 18, 2023 TECHNIQUE: Multidetector volumetric images were obtained from the superior aspect of the liver through the pubic symphysis following administration 85 mL of Omnipaque 350 intravenous contrast. Sagittal and coronal reformatted images were obtained on the technologist's workstation. Oral contrast: No This CT examination was performed using dose optimization techniques as appropriate, variously including the following: *Automated exposure control *Adjustment of mA and/or kV according to patient size (this includes techniques or standardized protocols for targeted exams where dose is matched to indication/reason for exam; i.e. extremities or head) *Use of iterative reconstruction technique DLP: 280 mGY*cm FINDINGS: LUNG BASES: There is minimal linear atelectasis or scarring in the posterior lower lobes bilaterally. LIVER, GALLBLADDER, AND BILIARY TREE: There is a small simple hepatic cyst in the posterior inferior right hepatic segment. Liver is homogeneous otherwise. The gallbladder is unremarkable with no evidence of radiopaque gallstones, gallbladder wall thickening, or obvious pericholecystic inflammatory changes. PANCREAS: Unremarkable. SPLEEN: Unremarkable. ADRENAL GLANDS: Unremarkable. KIDNEYS AND URETERS: There is a simple renal cyst, exophytic, involving superior pole right kidney. Small simple renal cyst is seen in the inferior pole right kidney. No change. There is a 1.5 mm nonobstructing stone in the lower pole right kidney, unchanged. Left kidney demonstrates a 3 mm nonobstructing stone and lower pole, unchanged. BLADDER: Unremarkable. GASTROINTESTINAL TRACT: Numerous pseudodiverticula are present in the sigmoid colon. There is a short segment of mild wall thickening deep in the central pelvis. There is no adjacent fat stranding. The GI tract is otherwise unremarkable including the appendix. ABDOMINAL WALL: No significant hernia is appreciated. LYMPH NODES: Normal. VASCULAR: Mild to moderate vascular calcifications are present. PELVIC VISCERA: Unremarkable. OSSEOUS STRUCTURES: Moderate to severe degenerative disc disease is most advanced at L4-5 and L5-S1. CT/CT abdomen pelvis w IV con IMPRESSION: Extensive diverticulosis is present in the sigmoid colon. There is a short length where the sigmoid colon wall appears mildly thickened in the central pelvis. There is no adjacent fat stranding. Mild diverticulitis is not ruled out but the change could be related to incomplete distention. Stable nonobstructing kidney stones on the right. Fleischner guidelines were followed. Electronically signed by: Real Quispe MD 03/30/2025 03:39 PM EDT RP
[2025-03-30 13:40] VITALS: BP 150/69; PULSE 92; RESP 16; TEMP 37.1; O2SAT 96; BMI 20.4
--- NOTE | 2025-03-30 13:41 | ED_ITS ---
HPI - Abdominal Pain General Chief Complaint: Abdominal Pain Stated Complaint: Abd pain and states has pain around body Time Seen by Provider: 03/30/25 14:26 History of Present Illness HPI narrative: 89-year-old female history of left ovarian cyst and diverticulitis who presents emergency department for evaluation of left lower quadrant abdominal pain and left flank pain. The patient states that her symptoms came on gradually yesterday. She states that the pain is a dull ache which has been constant in his currently 12/07. The pain is worse with movement. The patient denied fever, chills, nausea, vomiting or diarrhea. She has not noted any black stools or bloody stools. She denied dysuria but did have frequency. Patient states she may have had similar pain in the past but can not recount when she had the pain. Patient went to an urgent care clinic and had a negative urinalysis but was referred to the emergency department for further evaluation of her abdominal pain. Related Data Previous Rx's ?Medication ?Instructions ?Recorded amoxicillin 875 mg-potassium 1 tab PO BID 7 days #14 t abs 03/26/23 clavulanate 125 mg tablet amoxicillin 875 mg-potassium 1 tab PO Q12H 7 days #14 tabs 03/30/25 clavulanate 125 mg tablet Allergies Allergy/AdvReac Type Severity Reaction Status Date / Time omeprazole (From Prilosec) AdvReac Gastrointestinal Verified 03/30/25 13:41 Upset Review of Systems Review of Systems Yes all other systems are reviewed and are negative [facility] Past Medical History [facility] Narrative: Social history: She lives with her . She denies tobacco, alcohol and drug use. Medical History Diverticulitis Cyst, ovarian Social History Social History Alcohol intake: never Smoked in Last 30 Days: No Use of substances other than those prescribed or required for medical reasons: No Advance Directives: No Advance Directives Information Provided: Yes Physical Exam ED Vital Signs: Vital Signs - 24 hr 03/30/25 13:40 03/30/25 14:15 03/30/25 16:04 Temperature 98.7 F 97.8 F 98.1 F Pulse Rate 92 87 75 Respiratory Rate 16 16 18 Blood Pressure 150/69 H 172/73 H 170/80 H Pulse Oximetry 96 97 96 Oxygen Delivery Method Room Air Room Air Room Air BMI result Body Mass Index 20.4 Vital signs revealed an elevated blood pressure of 150/69 otherwise unremarkable Exam: General: Awake, alert in no distress Head: Normocephalic, atraumatic EENT: PERRL, Lids normal, sclera normal, conjunctiva normal, nose normal , ears normal, throat without erythema or exudates Neck: Supple, no adenopathy Lung: breath sounds symmetric, no wheezing, rales or rhonchi Chest: symmetric movement, nontender Heart: regular rate and rhythm, normal S1, S2 no murmurs or rubs Abdomen: soft, mild to moderate left lower quadrant tenderness, mild suprapubic tenderness, nondistended, normal bowel sounds Back: no vertebral tenderness, no CVAT Extremities: no deformities, moves all extremities symmetrically Neuro: Awake, alert, oriented, normal speech, cranial nerves intact, moves all extremities symmetrically Psych: Pleasant, cooperative Course Course Course Narrative: This is an RME performed by Mook Keene CNP: Additional HPI, ROS, PE not included below will be deferred to primary provider. Patient is an 89-year-old female presents emergency department for evaluation over the past few days she has been having abdominal pain and back pain. Primarily localized to the left side of her abdomen. Denies fevers, chills, nausea, vomiting, diarrhea, constipation, genitourinary symptoms. Admits to some history of some pain in the cast is not certain what etiology, believes perhaps a ?cyst?. Medical record reveals a history of diverticulitis. Plan: Serum labs, urinalysis Medical Decision Making Medical Decision Making MDM Narrative: 89-year-old female history of left ovarian cyst and diverticulitis who presents emergency department for evaluation of left lower quadrant abdominal pain and left flank pain. The patient states that her symptoms came on gradually yesterday. She states that the pain is a dull ache which has been constant in his currently 12/07. The pain is worse with movement. The patient denied fever, chills, nausea, vomiting or diarrhea. She has not noted any black stools or bloody stools. She denied dysuria but did have frequency. Patient states she may have had similar pain in the past but can not recount when she had the pain. Patient went to an urgent care clinic and had a negative urinalysis but was referred to the emergency department for further evaluation of her abdominal pain. Vital signs revealed an elevated blood pressure otherwise unremarkable. Exam revealed mild to moderate left lower quadrant tenderness and mild suprapubic tenderness. Differential diagnosis: ?Includes but is not limited to viral syndrome, pancreatitis, diverticulitis, ovarian cyst, anemia, electrolyte abnormalities Course: 14:52 My independent interpretation patient's laboratory evaluation is as follows: Normocytic anemia with an H&H of 12.4 and 36.9. BUN elevated 26 with a normal creatinine of 0.85. AST was elevated 33. Lipase was normal. Urinalysis was positive for leukocyte esterase microscopic revealed bacteria and no significant WBCs. 16:24 CT scan is consistent with sigmoid diverticulitis. I did discuss this with the patient. Patient was given Augmentin 875 mg orally here in the emergency department. Patient was treated with Augmentin 875/125 q.12 hours x7 days she was advised to take Tylenol for pain. She was given printed and verbal instructions and discharged home Admission/Observation Consideration of admission/observation: Escalation of care including admission/observation considered (Yes) Lab Data [facility] Lab Attestation statement: I reviewed the patient's lab results. 03/30/25 13:52 03/30/25 13:52 Labs: Lab Results 03/30/25 03/30/25 Range/Units 13:52 15:39 WBC 8.9 (4.8-10.8) X10*3/uL RBC 4.00 L (4.20-5.50) X10*6/uL Hgb 12.4 (12.0-16.0) g/dl Hct 36.9 L (37.0-47.0) % MCV 92.3 (80.0-98.0) fL MCH 31.0 (27.0-33.0) pg MCHC 33.6 (31.0-35.0) g/dl RDW 12.9 (11.0-16.0) % Plt Count 217 (160-400) X10*3/uL MPV 10.2 (9.4-12.3) fL Immature Gran % (Auto) 0.4 (0.0-0.4) % Neut % (Auto) 75.0 H (45-73) % Lymph % (Auto) 16.6 L (20-40) % Cassia % (Auto) 7.2 (2-11) % Eos % (Auto) 0.4 (0-4) % Baso % (Auto) 0.4 (0-2) % Lymph # (Auto) 1.5 (1.2-4.9) X10*3/uL Cassia # (Auto) 0.6 (0.1-1.2) X10*3/uL Eos # (Auto) 0.0 (0.0-0.4) X10*3/uL Baso # (Auto) 0.0 (0.0-0.2) X10*3/uL Abs Immat Gran (auto) 0.04 H (0.00-0.03) X10*3/uL Absolute Neuts (auto) 6.7 (2.0-8.3) x10*3/uL Absolute Nucleated RBC 0.000 (0.0-0.012) X10*3/uL Nucleated RBC % (auto) 0.0 (0.0-0.2) /100WBC Sodium 141 (135-145) mmol/L Potassium 3.5 (3.3-5.1) mmol/L Chloride 104 (96-108) mmol/L Carbon Dioxide 31 H (22-29) mmol/L Anion Gap 10 L (12-20) BUN 26 H (9-16) mg/dL Creatinine 0.85 (0.5-1.4) mg/dL Estim Creat Clear Calc 33.5 Estimated GFR > 60 Random Glucose 107 (60-115) mg/dL Calcium 9.4 (8.4-10.2) mg/dL Total Bilirubin 0.4 (0.0-1.0) mg/dL AST 28 (5-31) U/L ALT 33 H (0-31) U/L Alkaline Phosphatase 86 (39-117) U/L Total Protein 7.5 (6.5-8.0) g/dL Albumin 4.6 (3.5-5.0) g/dL Lipase 19 (8-78) U/L Urine Color Yellow Urine Appearance Clear Urine pH 6.5 (5.0-9.0) Ur Specific [place] 1.015 (1.005-1.025) Urine Protein Negative (Neg-Trace) mg/dL Urine Glucose (UA) Negative (Negative) mg/dL Urine Ketones Negative (Negative) mg/dL Urine Blood Negative (Negative) Urine Nitrite Negative (Negative) Ur Leukocyte Esterase Trace H (Negative) Urine RBC 0-2 (0-2) /HPF Urine WBC 0-5 (0-5) /HPF Ur Squamous Epith Cells 0-2 (0-2) /HPF Urine Bacteria None Seen (None Seen) Hyaline Casts 0-2 (0-2) /LPF Radiology Impression Discussion of test interpretation with radiology: I have reviewed the radiologist's reading. Radiologist Impression: CT abdomen pelvis w IV con IMPRESSION: Extensive diverticulosis is present in the sigmoid colon. There is a short length where the sigmoid colon wall appears mildly thickened in the central pelvis. There is no adjacent fat stranding. Mild diverticulitis is not ruled out but the change could be related to incomplete distention. Stable nonobstructing kidney stones on the right. Fleischner guidelines were followed. Electronically signed by: Real Quispe MD 03/30/2025 03:39 PM EDT Independent Historian Clinical information obtained from an independent historian. History obtained from or confirmed by: Spouse and Other (Done) Prescription Management I considered prescription management with: Antibiotic (Augmentin) Medications Administered Discontinued Medications Generic Name Dose Route Start Last Admin Trade Name Freq PRN Reason Stop Dose Admin Sodium Chloride 1,000 mls @ 999 mls/hr 03/30/25 14:44 03/30/25 15:34 Ns IV 03/30/25 15:44 999 mls/hr .Q1H1M STA Administration Iohexol 100 ml 03/30/25 15:20 03/30/25 15:21 Iohexol 350 Mg/Ml 100 Ml Infus..Btl IV 03/30/25 15:21 85 ml ONCE ONE Administration Ketorolac Tromethamine 15 mg 03/30/25 14:44 03/30/25 15:35 Ketorolac Tromethamine 15 Mg/Ml Vial IVPUSH 03/30/25 14:45 15 mg ONCE STA Administration Discharge Plan Discharge Clinical Impression: Diverticulitis of sigmoid colon Patient Disposition: Home, Self-Care Instructions: Diverticulitis (ED) Additional Instructions: Your blood work was unremarkable Your urinalysis was normal with no evidence of an infection The CT scan of your abdomen pelvis with IV contrast revealed sigmoid diverticulitis (infected pockets off the lower colon). Take Tylenol (325 mg pills) 2 pills every 6 hours as needed for pain. You can continue to take your tramadol however you should checked to see if your tramadol has acetaminophen in it. If it does, you can not take more than 3 grams of Tylenol per day. Take Augmentin (amoxicillin/clavulanate) 800/125 mg, 1 pill every 12 hours for 7 days Please return to the emergency department if you developed fever, chills, nausea, vomiting, unable to take the antibiotic, severe abdominal pain, dark red stool or bloody stool, or if you develop any new symptoms that are concerning to you. Follow-up with your doctor in 7 days. Prescriptions: New amoxicillin-pot clavulanate 875-125 mg tablet 1 tab PO Q12H 7 Days Qty: 14 0RF No Action amoxicillin-pot clavulanate 875-125 mg tablet 1 tab PO BID 7 Days Qty: 14 0RF Print Language: Amharic
[2025-03-30 13:55] LABS: MANUAL DIFF FLAG NO
[2025-03-30 14:03] LABS: Hematocrit 36.9 % (37.0-47.0); Hemoglobin 12.4 g/dl (12.0-16.0); Imm Gran Abs Auto 0.04 X10*3/uL (0.00-0.03); Imm Gran Pct Auto 0.4 % (0.0-0.4); Lymphocytes Absolute Auto 1.5 X10*3/uL (1.2-4.9); Mean Corpuscular HGB Conc 33.6 g/dl (31.0-35.0); Mean Corpuscular Hemoglobin 31.0 pg (27.0-33.0); Mean Corpuscular Volume 92.3 fL (80.0-98.0); NRBC Abs Auto 0.000 X10*3/uL (0.0-0.012); NRBC Pct Auto 0.0 /100WBC (0.0-0.2); Platelet Count 217 X10*3/uL (160-400); Red Blood Count 4.00 X10*6/uL (4.20-5.50); White Blood Count 8.9 X10*3/uL (4.8-10.8)
[2025-03-30 14:15] VITALS: BP 172/73; PULSE 87; RESP 16; TEMP 36.6; O2SAT 97
--- NOTE | 2025-03-30 14:19 | PC.NURSE ---
Patient presents to ED c/o left abdomen pain rated 4/10 non radiating describes it as aching. Denies urinary symptoms, constipation, n/v, sick contacts. Pain started yesterday and has become progressively worse. VSS and up to date. Provider in to see patient. Plan of care on going
[2025-03-30 14:38] LABS: Alanine Aminotransferase 33 U/L (0-31); Albumin Level 4.6 g/dL (3.5-5.0); Alkaline Phosphatase 86 U/L (39-117); Anion Gap 10 (12-20); Aspartate Amino Transferase 28 U/L (5-31); Blood Urea Nitrogen 26 mg/dL (9-16); Calcium 9.4 mg/dL (8.4-10.2); Carbon Dioxide 31 mmol/L (22-29); Chloride 104 mmol/L (96-108); Creatinine Clr Calc Pharmacy 33.5; Estimated Glomerular Filt Rate > 60; Lipase 19 U/L (8-78); Potassium 3.5 mmol/L (3.3-5.1); Sodium 141 mmol/L (135-145); Total Protein 7.5 g/dL (6.5-8.0)
--- OUTSIDE RECORDS SUMMARY | 2025-03-30 14:44 | XMS_ITS | Clinical Summary ---
Author Organization [facility] [address] [place] [address] [address] [place] [address] Phone Care Team Providers Care Director Television News Name Role Phone Filemon Gomez Primary Care Provider [phone] Allergies Active Allergy Reactions Criticality Noted Date Comments Amlodipine 11/17/2016 Azithromycin Wheezing 11/27/2006 Metoprolol Other 11/09/2018 Fatigue Pantoprazole Sodium Numbness 07/20/2005 Sulfa (Sulfonamide Antibiotics) Nausea And Vomiting 10/01/2009 Terazosin 04/18/2020 Abdominal pain Triamterene-Hydrochloroth iazid Anaphylaxis High 08/24/2019 Medications cholecalcifero l (VITAMIN D-3) 25 mcg (1,000 unit) tablet Take by mouth. Active irbesartan (AVAPRO) 150 mg tablet TAKE 1 TABLET BY MOUTH DAILY 90 tablet 1 11/14/19 25 Active hydroCHLOROthi azide (MICROZIDE) 12.5 mg capsule TAKE 1 CAPSULE BY MOUTH EVERY MORNING 90 capsule 3 12/29/19 25 Active traMADol-aceta minophen (ULTRACET) 37.5-325 mg per tablet Take 1 tablet by mouth twice a day as needed for severe pain. Max daily amount 2 tablets 56 tablet 03/12/20 25 Active levothyroxine (SYNTHROID, LEVOTHROID) 25 mcg tablet TAKE 1 TABLET BY MOUTH DAILY 90 tablet 1 03/16/20 25 Active amitriptyline (ELAVIL) 10 mg tablet TAKE 1 TABLET BY MOUTH AT BEDTIME 90 tablet 1 03/16/20 25 Active levothyroxine (SYNTHROID, LEVOTHROID) 25 mcg tablet TAKE 1 TABLET BY MOUTH DAILY 90 tablet 1 09/01/19 25 025 Discontinued amitriptyline (ELAVIL) 10 mg tablet TAKE 1 TABLET BY MOUTH AT BEDTIME 90 tablet 1 09/01/19 25 025 Discontinued traMADol-aceta minophen (ULTRACET) 37.5-325 mg per tablet Take 1 tablet by mouth twice a day as needed for severe pain. Max daily amount 2 tablets 56 tablet 02/08/20 25 025 Discontinued(Re order) Active Problems Problem Noted Date Diagnosed Date Lung nodule 03/21/2022 Overview (07/12/2024): Noted incidentally on CT abdomen 03/20/22 - ct chest suggested by radiology, patient declined any further workup Fibromyalgia 09/13/2017 Polymyalgia rheumatica (CMS/[facility] V24) 09/10/2017 Osteoarthritis of glenohumeral joint 05/05/2017 Overview (07/12/2024): right Chronic back pain 02/12/2017 Cyst of ovary, left 12/25/2016 Overview (07/12/2024): Simple, little change in 9 years Last Assessment & Plan: I reviewed the recent CT and ultrasound results with the patient, as well as prior ultrasounds demonstrating a simple left ovarian cyst, which has slightly decreased in size over time. I discussed with the patient that the stability in size as well as the appearance on ultrasound is highly suggestive of a benign process. I discussed that since her pain has resolved I do not recommend any intervention at this time. I reviewed alarm symptoms for cyst rupture and torsion, however these are very unlikely at this point as the cyst has been present for such a long period of time. I discussed with the patient that if she does begin to have pain in the future or desires cyst removal this can be surgically performed. She declined surgery and is happy to proceed with expectant management. No follow-up imaging necessary. All questions answered. Lumbosacral spondylosis without myelopathy 02/09 Overview (07/12/2024): injections not helpful Essential hypertension, benign 12/28/2006 Diverticulitis of colon without hemorrhage 06/22 Esophageal reflux 06/22/2005 Hypothyroidism 04/25/2005 Encounters Date Type Department Care Team Description 01/01/2025 1:30 PM EDT Office Visit Adult Medicine [address] [phone] Filemon Gomez PA Essential hypertension, benign (Primary Dx); Need for vaccination against Streptococcus pneumoniae; Polymyalgia rheumatica ([facility] V24); Hypothyroidism, unspecified type; Gastroesophageal reflux disease without esophagitis; Encounter for therapeutic drug level monitoring; Impacted cerumen, bilateral from Last 3 Months Immunizations Name Administration Dates Next Due DTaP, Unspecified 05/24/2003 Influenza trivalent, 0.5mL ( Fluad) 65yo and older 08/07/2024,06/12/2021,06/07/2020,06/08,08/11/2017 Influenza, Unspecified 06/12/2021 Pneumococcal conjugate 13 va lent (Prevnar 13, PCV13) 2mo and older 02/08/2015 Pneumococcal conjugate 20 va lent (Prevnar 20, PCV 20) 2mo and older 01/01/2025 Pneumococcal polysaccharide 23 valent (Pneumovax 23) 2yo and older 08/30/2001 Td Tetanus diptheria (Tdvax) 7yo and older 10/26/2023,08/02/2013,05/24/2003 Zoster Live 02/01/2014 Surgical History Surgery Date Site/Laterality Comments COLONOSCOPY 06/27/2012 PROCEDURE: AK COLONOSCOPY STOMA DX INCLUDING COLLJ SPEC SPX TONSILLECTOMY PROCEDURE: HISTORICAL TONSILLECTOMY CATARACT EXTRACTION Bilateral PROCEDURE: HISTORICAL CATARACT REMOVAL Medical History Medical History Date Comments Unspecified hypothyroidism 04/25/05 DX:Un specified hypothyroidism Other seborrheic keratosis 10/03/04 DX:Ot her seborrheic keratosis Herpes zoster without mentio n of complication 07/03/04 DX:Herpes zoster without men tion of complication Lumbago DX:Lumbago Esophageal reflux DX:Esophageal reflux Other affections of shoulder region, not elsewhere classified DX:Other affections of shoul vasiliy region, not elsewhere classified; COMMENT: (L) impingement Diverticulosis of colon (wit hout mention of hemorrhage) DX:Diverticulosis of colon ( without mention of hemorrhage) Lumbosacral spondylosis with out myelopathy 02/09/2007 DX:Lumbosacral spondylosis w ithout myelopathy; COMMENT: injections not helpful 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 DX:Glaucoma associated with unspecified ocular disorder Myalgia and myositis, unspecified 02/09/2007 DX:Myalgia and myositis, unspecified; COMMENT: Dx 1989 Family History Medical History Relation Name Comments Breast cancer Daughter Arthritis Father Hypertension Mother Colon cancer Neg Hx Ovarian cancer Neg Hx Relation Name Status Comments Brother 1 (Age 68) liver dise ase Brother 2 prostate cancer Brother 3 Alive Brother 4 Alive Daughter Alive Father (Age 86) Mother (Age 98) Sister Alive Social History Tobacco Use Types Packs/Day Years Used Date Smoking Tobacco: Former Cigarettes 0.5 30.5 0 03/10/1954 - 08/30/1984 Smokeless Tobacco: Never Tobacco Cessation:Counseling Given: Not Answered Alcohol Use Standard Drinks/Week Comments No 0 (1 standard drink = 0.6 oz pur e alcohol) Housing Instability Answer Date Recorde d Are you worried that in the next 2 months you may not have stable housing? No 12/25/2024 Food Access & Nutrition Answer Date Rec orded Do you have access to a vari ety of food including fruits and vegetables? Yes 12/25/2024 Health Literacy Answer Date Recorded How often do you need to hav e someone help you when you read instructions, pamphlets, or other written material from your doctor or pharmacy? Sometimes 12/25/2024 Caregiver: How often do you need to have someone help you when you read instructions, pamphlets, or other written material from your doctor or pharmacy? Not on file 12/25/2024 Financial Risk Answer Date Recorded How hard is it for you to pa y for the very basics like food, housing, medical care, and air conditioning / heating? Not very hard 12/25/2024 Transportation Answer Date Recorded Has the lack of transportati on kept you from meetings, work, or from getting things needed for daily living? No Has the lack of transportati on kept you from medical appointments or from getting medications? No 12/25/2024 Social Isolation Answer Date Recorded How often do you feel lonely or isolated from th ose around you? Never 12/25/2024 Food Risk Answer Date Recorded Within the past 12 months we worried whether our food would run out before we got money to buy more. Never true 12/25/2024 Within the past 12 months th e food we bought just didn't last and we didn't have money to get more. Never true 12/25/2024 Dependent Care Answer Date Recorded Do you need help finding or paying for care for your loved ones. For example, children's entertainer or elderly care for an older adult? No 12/25/2024 Education Answer Date Recorded Do you think completing more education or training, like finishing a GED, going to college, or learning a trade, would be helpful for you? No 12/25/2024 Employment and Income Answer Date Recor ded During the last four weeks, have you been actively looking for work? No 12/25/2024 Living Situation Answer Date Recorded What is your living situation? 0 12/25/2024 Comments Unknown Sex and Gender Information Value Date Recorded Sex Assigned at Not on file Legal Sex Female 2:20 PM EST Gender Identity Not on file Sexual Orientation Not on file Obstetrics History Last Filed Vital Signs Vital Sign Reading Time Taken Comments Blood Pressure 129/72 01/01/2025 1:03 PM EDT Pulse 93 01/01/2025 1:03 PM EDT Temperature 36.7 C (98 F) 01/01/2025 1:03 PM EDT Respiratory Rate 14 01/01/2025 1:03 PM EDT Oxygen Saturation 96% 08/29/2024 1:37 PM EST Inhaled Oxygen Concentration - - Weight 50.2 kg (110 lb 9.6 oz) 01/01/2025 1:03 P M EDT Height 149.9 cm (4' 11 ) 01/01/2025 1:03 PM EDT Body Mass Index 22.34 01/01/2025 1:03 PM EDT Plan of Treatment Upcoming Encounters Date Type Department Care Team (Late st Contact Info) Description 05/08/2025 3:00 PM EDT Office Visit Adult Medicine [facility] [address], [place] [phone] Filemon Gomez PA [address] [place] [address] Health Maintenance Due Date Last Done Comments RSV Immunization Adult Patients (1 - 1-dose 75+ series) 2012 Zoster Vaccines (1 of 2) 03/29/2014 02/01/2014 Medicare Annual Wellness Visit 08/03/2022 COVID-19 Vaccine (7 - Pfizer risk 2023- season) 2025 08/07/2024, 05/31/2022, 12/25/2021, Additional history exists Influenza Vaccine (#1) 2025 , 05/31/2022, 06/12/2021, Additional history exists Social Influencers of Health Screening 12/25/2025 12/25/2024 Falls Risk Assessment 01/01/2026 01/01/2025 Hypertension/CHF/CAD Annual BMP Blood Test 01/01/2026 01/01/2025, 12/16/2023 Cholesterol Screening (Lipid Panel) 01/01/2030 01/01/2025, 12/16/2023 DTaP,Tdap,and Td Vaccines (5 - Td or Tdap) 10/26/2033 10/26/2023, 08/02/2013, 05/24/2003, Additional history exists Depression Screening Completed 12/25/2024 Pneumococcal Vaccine: 50+ Years Completed 01/01/2025, 02/08/2015, 08/30/2001 HIB Vaccines Aged Out No longer eligi ble based on patient's age to complete this topic HPV Vaccines Aged Out No longer eligi ble based on patient's age to complete this topic Hepatitis A Vaccines Aged Out No long er eligible based on patient's age to complete this topic Hepatitis B Vaccines Aged Out No long er eligible based on patient's age to complete this topic IPV Vaccines Aged Out No longer eligi ble based on patient's age to complete this topic MMR Vaccines Aged Out No longer eligi ble based on patient's age to complete this topic Meningococcal ACWY Vaccine Aged Out N o longer eligible based on patient's age to complete this topic Meningococcal B Vaccine Aged Out No l onger eligible based on patient's age to complete this topic Osteoporosis Screening (Bone Density Screening) Discontinued RSV Immunization Patients Under 20 months Aged Out No longer eligible based on patient's age to complete this topic Varicella Vaccines Aged Out No longer eligible based on patient's age to complete this topic Procedures Procedure Name Priority Date/Time Associated Diagnosis Comments CBC WITH AUTO DIFFERENTIAL Routine 01/01/2025 2:36 PM EDT Need for vaccination against Streptococcus pneumoniae Polymyalgia rheumatica ([facility]/HCC V24) Essential hypertension, benign Hypothyroidism, unspecified type Gastroesophageal reflux disease without esophagitis LIPID PANEL WITH REFLEX TO DIRECT LDL Routine 01/01/2025 2:36 PM EDT Need for vaccination against Streptococcus pneumoniae Polymyalgia rheumatica ([facility]/HCC V24) Essential hypertension, benign Hypothyroidism, unspecified type Gastroesophageal reflux disease without esophagitis COMPREHENSIVE METABOLIC PANEL Routine 01/01/2025 2:36 PM EDT Need for vaccination against Streptococcus pneumoniae Polymyalgia rheumatica ([facility]/HCC V24) Essential hypertension, benign Hypothyroidism, unspecified type Gastroesophageal reflux disease without esophagitis SEDIMENTATION RATE Routine 01/01/2025 2: 36 PM EDT Need for vaccination against Streptococcus pneumoniae Polymyalgia rheumatica ([facility]CC V24) Essential hypertension, benign Hypothyroidism, unspecified type Gastroesophageal reflux disease without esophagitis THYROID STIMULATING HORMONE WITH REFLEX TO FREE T4 AND FREE T3 Routine 01/01/2025 2:36 PM EDT Need for vaccination against Streptococcus pneumoniae Polymyalgia rheumatica ([facility]/HCC V24) Essential hypertension, benign Hypothyroidism, unspecified type Gastroesophageal reflux disease without esophagitis CBC AND DIFFERENTIAL Routine 01/01/2025 2:36 PM EDT Need for vaccination against Streptococcus pneumoniae Polymyalgia rheumatica ([facility]CC V24) Essential hypertension, benign Hypothyroidism, unspecified type Gastroesophageal reflux disease without esophagitis DRUG ABUSE SCREEN EXPANDED WITH REFLEX CONFIRMATION, URINE Routine 01/01/2025 2:36 PM EDT Need for vaccination against Streptococcus pneumoniae Polymyalgia rheumatica ([facility]CC V24) Essential hypertension, benign Hypothyroidism, unspecified type Gastroesophageal reflux disease without esophagitis Encounter for therapeutic drug level monitoring from Last 3 Months Results * Thyroid stimulating hormone with reflex to free t4 and free t3 (01/01/2025 2:36 PM EDT) TSH 3.63 0.40 - 4.00 mcIU/mL LAB CHEMISTRY METHOD 01/01/2025 5:41 PM EDT [facility] Blood Venous blood specimen / Unknown Venipuncture / Unknown 01/01/2025 2:36 PM EDT 01/01/2025 2:36 PM EDT us Filemon KO LAB BLOOD ORDERABLES Gail vela Result [facility] [address] [place] [address], [place] [phone] * Drug abuse screen expanded with reflex confirmation, urine (01/01/2025 2:36 PM EDT) Amphetamine Screen, Ur Negative Negative LAB CHEMISTRY METHOD 01/01/2025 5:37 PM EDT [facility] Comment:Certain OTC medicati ons containing ephedrine, phenylephrine, pseudoephedrine and phenylpropanolamine can cause false positive results. Barbiturate Screen, Ur Negative Negative LAB CHEMISTRY METHOD 01/01/2025 5:37 PM EDT [facility] Benzodiazepine Screen, Ur Negative Negative LAB CHEMISTRY METHOD 01/01/2025 5:37 PM EDT [facility] Cocaine Screen, Ur Negative Negative LAB CHEMISTRY METHOD 01/01/2025 5:37 PM EDT [facility] Opiate Screen, Ur Negative Negative LAB CHEMISTRY METHOD 01/01/2025 5:37 PM EDT [facility] Cannabinoid (THC) Screen, Ur Negative Negative LAB CHEMISTRY METHOD 01/01/2025 5:37 PM EDT [facility] Comment:Specimens from patie nts taking pantoprazole sodium (Protonix) have been shown to produce false positive results. Fentanyl, Ur Negative Negative LAB CHEMISTRY METHOD 01/01/2025 5:37 PM EDT [facility] Oxycodone Screen, Ur Negative Negative LAB CHEMISTRY METHOD 01/01/2025 5:37 PM EDT [facility] Urine Urine specimen obtained by clean catch procedure / Unknown Non-blood Collection / Unknown 01/01/2025 2:36 PM EDT 01/01/2025 2:36 PM EDT Narrative [facility] - 01/01/2025 5:37 PM EDT Assay cutoffs: Amphetamines 1000 ng/mL Barbiturates 200 ng/mL Benzodiazepines 200 ng/mL Cocaine 300 ng/mL Fentanyl 1 ng/mL Opiates 300 ng/mL Oxycodone 100 ng/mL THC 50 ng/mL Semi-quantitative assay for screening purposes only. Unconfirmed screening result should not be used for non-medical purposes. *POSITIVE RESULTS ARE AUTOMATICALLY SENT FOR ALTERNATE METHOD CONFIRMATION* Filemon KO LAB URINE ORDERABLES Gail vlea Result [facility] [address] [place] [address], [place] [phone] * (ABNORMAL) Lipid panel with reflex to direct LDL (01/01/2025 2:36 PM EDT) Cholesterol 229(H) 0 - 200 mg/dL LAB CHEMISTRY METHOD 01/01/2025 5:12 PM EDT [facility] Triglycerides 111 0 - 150 mg/dL LAB CHEMISTRY METHOD 01/01/2025 5:12 PM EDT [facility] HDL 87 >=40 mg/dL LAB CHEMISTRY METHOD 01/01/2025 5:12 PM EDT [facility] LDL Calculated 120(H) 0 - 100 mg/dL LAB CHEMISTRY METHOD 01/01/2025 5:12 PM EDT [facility] VLDL Cholesterol Zack 22.2 mg/dL LAB CHEMISTRY METHOD 01/01/2025 5:12 PM EDT [facility] Non HDL Chol. (LDL+VLDL) 142 <145 mg/dL LAB CHEMISTRY METHOD 01/01/2025 5:12 PM EDT [facility] Chol/HDL Ratio 2.6 0.0 - 4.4 LAB CHEMISTRY METHOD 01/01/2025 5:12 PM EDT [facility] Blood Venous blood specimen / Unknown Venipuncture / Unknown 01/01/2025 2:36 PM EDT 01/01/2025 2:36 PM EDT Filemon KO LAB BLOOD ORDERABLES Gail vela Result [facility] [address] [place] [address], [place] [phone] * CBC auto differential (01/01/2025 2:36 PM EDT) WBC 8.6 4.8 - 10.8 K/mcL LAB HEMETOLOGY METHOD 01/01/2025 5:01 PM EDT [facility] RBC 3.80 3.80 - 4.80 M/mcL LAB HEMETOLOGY METHOD 01/01/2025 5:01 PM EDT [facility] Hemoglobin 11.8 11.5 - 16.0 g/dL LAB HEMETOLOGY METHOD 01/01/2025 5:01 PM EDT [facility] Hematocrit 36.5 35.0 - 47.0 % LAB HEMETOLOGY METHOD 01/01/2025 5:01 PM EDT [facility] MCV 95.3 79.0 - 98.0 FL LAB HEMETOLOGY METHOD 01/01/2025 5:01 PM EDT [facility] MCH 30.8 27.0 - 32.0 pcg LAB HEMETOLOGY METHOD 01/01/2025 5:01 PM EDT [facility] MCHC 32.3 32.0 - 37.0 g/dL LAB HEMETOLOGY METHOD 01/01/2025 5:01 PM EDT [facility] RDW 12.7 11.0 - 15.0 % LAB HEMETOLOGY METHOD 01/01/2025 5:01 PM [facility] Platelets 236 130 - 400 K/mcL LAB HEMETOLOGY METHOD 01/01/2025 5:01 PM [facility] MPV 10.9 7.0 - 11.0 FL LAB HEMETOLOGY METHOD 01/01/2025 5:01 PM [facility] NRBC 0.0 <1.0 % LAB HEMETOLOGY METHOD 01/01/2025 5:01 PM [facility] NRBC Absolute 0.00 <0.10 K/mcL LAB HEMETOLOGY METHOD 01/01/2025 5:01 PM [facility] Neutrophils Relative 72.2 % LAB HEMETOLOGY METHOD 01/01/2025 5:01 PM [facility] Lymphocytes Relative 18.6 % LAB HEMETOLOGY METHOD 01/01/2025 5:01 PM [facility] Monocytes Relative 7.4 % LAB HEMETOLOGY METHOD 01/01/2025 5:01 PM [facility] Eosinophils Relative 0.9 % LAB HEMETOLOGY METHOD 01/01/2025 5:01 PM [facility] Basophils Relative 0.7 % LAB HEMETOLOGY METHOD 01/01/2025 5:01 PM [facility] Immature Granulocytes Relative 0.2 % LAB HEMETOLOGY METHOD 01/01/2025 5:01 PM [facility] Neutrophils Absolute 6.20 1.50 - 7.00 K/mcL LAB HEMETOLOGY METHOD 01/01/2025 5:01 PM [facility] Lymphocytes Absolute 1.60 1.00 - 5.00 K/mcL LAB HEMETOLOGY METHOD 01/01/2025 5:01 PM [facility] Monocytes Absolute 0.64 0.20 - 1.00 K/mcL LAB HEMETOLOGY METHOD 01/01/2025 5:01 PM EDT [facility] Eosinophils Absolute 0.08 0.00 - 0.50 K/[facility] LAB HEMETOLOGY METHOD 01/01/2025 5:01 PM EDT [facility] Basophils Absolute 0.06 0.00 - 0.20 K/[facility] LAB HEMETOLOGY METHOD 01/01/2025 5:01 PM EDT [facility] Immature Granulocytes Absolute 0.02 0.00 - 0.03 K/[facility] LAB HEMETOLOGY METHOD 01/01/2025 5:01 PM EDT [facility] Blood Venous blood specimen / Unknown Venipuncture / Unknown 01/01/2025 2:36 PM EDT 01/01/2025 2:36 PM EDT Filemon KO LAB BLOOD ORDERABLES Gail l Result Performing Organization Address City/[facility]/ZIP Co de Phone Number [facility] [address] [place] [address], [place] [phone] * Sedimentation rate (01/01/2025 2:36 PM EDT) Sed Rate 15 0 - 30 mm/hr LAB HEMETOLOGY METHOD 01/01/2025 5:19 PM EDT [facility] Blood Venous blood specimen / Unknown Venipuncture / Unknown 01/01/2025 2:36 PM EDT 01/01/2025 2:36 PM EDT Filemon KO LAB BLOOD ORDERABLES Gail l Result [facility] [address] [place] [address], [place] [phone] * Comprehensive metabolic panel (01/01/2025 2:36 PM EDT) Sodium 140 133 - 145 mmol/L LAB CHEMISTRY METHOD 01/01/2025 5:10 PM [facility] Potassium 3.8 3.5 - 5.5 mmol/L LAB CHEMISTRY METHOD 01/01/2025 5:10 PM [facility] Chloride 103 96 - 110 mmol/L LAB CHEMISTRY METHOD 01/01/2025 5:10 PM [facility] CO2 31 21 - 32 mmol/L LAB CHEMISTRY METHOD 01/01/2025 5:10 PM [facility] Anion Gap 6 3 - 11 LAB CHEMISTRY METHOD 01/01/2025 5:10 PM [facility] Glucose 92 70 - 100 mg/dL LAB CHEMISTRY METHOD 01/01/2025 5:10 PM [facility] BUN 22 5 - 25 mg/dL LAB CHEMISTRY METHOD 01/01/2025 5:10 PM [facility] Creatinine 0.72 0.50 - 1.10 mg/dL LAB CHEMISTRY METHOD 01/01/2025 5:10 PM [facility] eGFR 81 >=60 mL/min/1. 73m2 LAB CHEMISTRY METHOD 01/01/2025 5:10 PM [facility] Comment:Calculation based on the Chronic Kidney Disease Epidemiology Collaboration (CKD-EPI) equation refit without adjustment for race. BUN/Creatinine Ratio 30.6 LAB CHEMISTRY METHOD 01/01/2025 5:10 PM [facility] Calcium 9.0 8.5 - 10.5 mg/dL LAB CHEMISTRY METHOD 01/01/2025 5:10 PM [facility] AST (SGOT) 20 10 - 42 unit/L LAB CHEMISTRY METHOD 01/01/2025 5:10 PM [facility] ALT (SGPT) 23 10 - 60 unit/L LAB CHEMISTRY METHOD 01/01/2025 5:10 PM [facility] Alkaline Phosphatase 88 42 - 121 unit/L LAB CHEMISTRY METHOD 01/01/2025 5:10 PM EDT [facility] Total Protein 6.9 6.0 - 8.0 g/dL LAB CHEMISTRY METHOD 01/01/2025 5:10 PM EDT [facility] Albumin 3.8 3.2 - 5.0 g/dL LAB CHEMISTRY METHOD 01/01/2025 5:10 PM EDT [facility] Total Bilirubin 0.3 0.0 - 1.4 mg/dL LAB CHEMISTRY METHOD 01/01/2025 5:10 PM EDT [facility] Blood Venous blood specimen / Unknown Venipuncture / Unknown 01/01/2025 2:36 PM EDT 01/01/2025 2:36 PM EDT Filemon KO LAB BLOOD ORDERABLES Gail l Result [facility] [address] [place] [address], from Last 3 Months Insurance [employer] Care Teams Director Television News Relationship Specialty Start Date End Date Filemon Gomez PA [address] [place] [id number] PCP - General Internal Medicine 08/20/20
--- OUTSIDE RECORDS SUMMARY | 2025-03-30 14:44 | XMS_ITS | Patient Health Record ---
Author Organization [facility] Address [address] [place] [id number] Care Team Providers Care Mill Tender Second Operator Name Role Phone Mariano Alfaro Primary Care Provider Mike Forman [phone] Allergies Allergen (clinical drug ingredient) Drug/Non Drug Allergy documented on EMR Reaction Allergy Type Onset Date Status Sulfa Unknown Drug Allergy Active pantoprazole Protonix Unknown Drug Allergy Acti ve erythromycin Erythromycin Unknown Drug Allergy A ctive Reason For Referral No Information Medications Medication SIG (Take, Route, Frequency, Duration) Notes Start Date End Date Status Calcium 600mg 08/30/2024 08/30/2024 Acti ve Fish Oil 1000mg 08/30/2024 08/30/2024 Ac tive Multi Vitamin/Minerals 08/30/20242024 Active Amitriptyline HCl 10mg 08/30/20242024 Active Ultracet 1mg 08/30/2024 08/30/2024 Activ e hydroCHLOROthiazide 25mg 08/30/202408/2024 Active Timolol Hemihydrate 0.5mg 08/30/202408/2024 Active MoviPrep 100 GM as directed Orally o nce for 1 dose 05/25/2012 Active Problems Problem Type SNOMED Code ICD Code Onset Dates Problem Status W/U Status Risk Notes Problem Colon cancer screening (546055075) Colon cancer screening (V76.51) Active confirmed Problem Diverticular disease of colon (937051366) Colon, diverticulosis (562.10) Active confirmed Plan Of Treatment Future Test Test Name Order Date COLONOSCOPY 05/25/2012 Insurance Providers Payer Name Payer Address Payer Phone Subscriber Number Group Number Insured Name Patient Relationship to Insured Coverage Start Date Coverage End Date [facility] [address] [place] [phone] [id number] AISLINN SPIVEY Self - patient is the insured Medical (General) History Medical History History ICD Code HTN diverticulosis internal hemorrhoids Denies SC,DM,CVA,Lung disease,renal dise ase Fibromyalgia
--- OUTSIDE RECORDS SUMMARY | 2025-03-30 14:44 | XMS_ITS ---
Author Name [facility] Organization Unknown Care Team Organization Name Specialty Phone Email Start Date End Da te [facility] Filemon Gomez Primary Care 01/04/2023 [facility] Termed, PROVIDER Primary Care 07/07/202203/30
[2025-03-30] MEDS: iohexoL 350 MG/ML 100 ML INFUS..BTL IV (15:21)
[2025-03-30 15:46] LABS: Appearance Urine Clear; Glucose Urine UA Negative (Negative); PH 6.5 (5.0-9.0); Specific Gravity - Urine 1.015 (1.005-1.025); UMIC TRIGGER UACC YES
[2025-03-30 16:04] VITALS: BP 170/80; PULSE 75; RESP 18; TEMP 36.7; O2SAT 96
[2025-03-30 16:53] VITALS: BP 170/80; PULSE 75; RESP 18; TEMP 36.7; O2SAT 96
== END 2025-03-30 17:12 | disposition home or self-care (01) ==
PROVIDERS: Nurse Practitioner Family; Emergency Provider Emergency Medicine Emergency Medical Services; PCP Physician Assistant Medical
DX: K57.12 Diverticulitis of small intestine without perforation or abscess without bleeding (principal); R10.9 Unspecified abdominal pain
CPT/HCPCS: 36415; 74177; 80053; 81001; 83690; 85025; 96361; 96374; 99284; 99285; J1885; Q9967

== ENCOUNTER → 2025-03-30 14:45 | Outpatient (BNV) | payer MEDICARE, SELFPAY | PROVIDERS: Emergency Provider Emergency Medicine Emergency Medical Services; PCP Physician Assistant Medical; Visit Provider Radiology Diagnostic Radiology | DX: K57.32 Diverticulitis of large intestine without perforation or abscess without bleeding (principal) | CPT/HCPCS: 74177 ==